=== PATIENT | male | born 1940 | race American Indian/Alaskan Native ===

== ENCOUNTER 2016-02-26 11:37 | Emergency (ER) | payer MEDICARE ==
[2016-02-26 13:53] LABS: Basophils % (Auto) 1.1 % (0.0-1.8); Hematocrit 43.6 % (35.5-45.6); Hemoglobin 14.7 gm/dl (11.8-15.2); Mean Corpuscular HGB Conc 34 % (32-34); Mean Corpuscular Hemoglobin 29 pg (28-32); Mean Corpuscular Volume 87 fl (84-94); Platelet Count 286 K/mm3 (140-440); Red Blood Count 5.03 M/mm3 (3.65-5.03); Red Cell Distribution Width 13.9 % (13.2-15.2); White Blood Count 4.9 K/mm3 (4.5-11.0)
--- NOTE | 2016-02-26 13:54 | Admit Criteria Form ---
Admission Criteria Documentation: CARDIOLOGY GRG Clinical Indications for Admission to Inpatient Care ( Place 'X' for any and all applicable criteria): Hospital admission is needed for appropriate care of the patient because of ANY ONE of the following (1): [ ] I. Hemodynamic instability as indicated by ALL of the following (1)(2)(3) (4)(5) [ ]a) Vital signs or other findings not as expected for chronic patient condition or baseline [ ]b) Instability indicated by ANY ONE of the following: [ ]i) Hypotension [ ]ii) Symptomatic Tachycardia unresponsive to treatment ( e.g., analgesia, fluids, sedation as indicated) [ ]iii) Inadequate perfusion indicated by ANY ONE of the following: [ ] 1) Lactic acidosis (> 2 mmol/L) [ ] 2) New abnormal capillary refill (> 3 seconds) [ ] 3) Reduced urine output [ ] 4) New altered mental status [ ]iv) Orthostatic vital sign changes unresponsive to treatment (e.g., fluids) [ ]v) IV inotropic or vasopressor medication required to maintain adequate blood pressure or perfusion [ ] II. Severe heart failure as indicated by ANY ONE of the following(17)(18) [ ]a) Respiratory distress [ ]b) Hypotension [ ]c) Anasarca (refractory to outpatient therapy) [ ]d) Cardiac arrhythmias of immediate concern [ ]e) Myocardial ischemia [ ] III. Cardiac arrhythmias or findings of immediate concern indicated by ANY ONE of the following (19)(20): [ ] a) Heart rhythms that are inherently dangerous or unstable indicated by ANY ONE of the following (21)(22)(23): [ ] i) Resuscitated ventricular fibrillation or cardiac arrest [ ] ii) Ventricular escape rhythm [ ] iii) Sustained ventricular tachycardia (30 seconds or more of ventricular rhythm at greater than 100 beats per minute) [ ] iv) Nonsustained ventricular tachycardia and ANY ONE of the following: [ ] 1) Suspected cardiac ischemia as cause or consequence of ventricular tachycardia [ ] 2) In setting of acute myocarditis [ ] b) Unstable cardiac conduction defects indicated by ANY ONE of the following(23)(24)(25) [ ] i) Type II second-degree atrioventricular block [ ]ii) Third-degree atrioventricular block [ ]iii) New-onset left bundle branch block with suspected myocardial ischemia [ ]c) Any heart rhythm and ANY ONE of the following (21)(22)(26)(27) (28) [ ] i) Continuous long-term ECG monitoring needed (e.g., initiation of drug requiring monitoring for more than 24 hours) [ ] ii) Patient has automatic implanted cardioverter defibrillator that is repeatedly firing, malfunctioning, or in need of immediate adjustment of settings beyond the scope of ambulatory or observation care [ ]d) Heart rhythms of concern due to ANY ONE of the following: [ ] i) Hypotension [ ] ii) Respiratory distress [ ] iii) Association with other significant symptoms (e.g., bradycardia with syncope or ongoing dizziness, supraventricular tachycardia with chest pain (14)(15)(17) [ ] IV. Monitoring for cardiac contusion beyond the scope of observation care needed [A](30)(31)(32) [ ] V. Surgical or device complication (e.g., valve replacement complication , pacemaker dysfunction) (35)(41)(44)(45)(46) [ ] . Inpatient palliative care needed. [B](49) Also use Inpatient Palliative Care Criteria [ ] VII. Nonbacterial thrombotic ([place]) endocarditis (36)(43)(47)(48) [ ] VIII. Cardiology condition, symptom, or finding for which emergency and observation care has failed or are not considered appropriate. [ ] IX. Acute valvular disease requiring inpatient as indicated by ANY ONE of the following (41) [ ]a) Acute valvular regurgitation (42) [ ]b) Noninfectious valvulitis (43) [ ]c) Obstructive valve thrombosis [ ]d) Paravalvular leak [ ]e) Other significant valvular disorder remaining after emergency or observation level of care (as appropriate) [ ]X. Pericardial disease requiring inpatient treatment as indicated by ANY ONE of the following (33)(34)(35)(36)(37) [ ]a) Suspected tamponade (38)(39)(40) [ ]b) Hemopericardium [ ]c) Other significant pericardial disorder remaining after emergency or observation level of care (as appropriate) [ ] XI. Cardiac ischemia beyond scope of emergency and observation care. [ ] XII. Hypertension requiring inpatient treatment as indicated by ANY ONE of the following (6)(7)(8) [ ]a) SBP greater than 220 mm Hg or DBP greater than 120 mmHg despite treatment [ ]b) SBP greater than 140 mm Hg or DBP greater than 100 mm Hg with evidence of acute end organ damage as indicated by ANY ONE of the following [ ] i) Altered mental status [ ] ii) Acute renal failure as indicated by new onset of ANY ONE of the following (9)(10)(11)(12)(13) [ ]1) 3-fold rise in serum creatinine from baseline [ ]2) Serum creatinine greater than 4 mg/dL ( 354 micromoles/L) with acute rise greater than 0.5 mg/dL (44.2 micromoles/L) [ ]3) Reduction of more than 75% in estimated glomerular filtration rate from baseline [ ]4) Estimated glomerular filtration rate less than 35 mL/min/1.73m2 (0.59 mL/sec/1.73m2) in child up to 18 years of age [ ]5) Cessation of urine output indicated by ALL of the following [ ]A. Adequate volume status [ ]B. Inadequate urine output as indicated by ANY ONE of the following [ ]a. Urine output less than 0.3 mL/kg/hr for 24 hours [ ]b. Anuria (urine output less than 0.1 mL/kg/hr) for 12 hours [ ] iii) Aortic dissection [ ] iv) Myocardial Ischemia [ ] v) Left ventricular heart failure [ ]vi) Retinal Hemorrhage [ ]vii) Other significant finding [ ]c) Hypertension in child requiring inpatient treatment as indicated by ALL of the following(14)(15)(16) [ ] i) Outpatient treatment not effective, not available, or not appropriate [ ]ii) SBP or DBP greater than 95th percentile for age [ ]iii) Evidence of acute end organ damage as indicated by ANY ONE of the following [ ]1) Altered mental status [ ]2) Acute renal failure as indicated by new onset of ANY ONE of the following(9)(10)(11)(12)(13) [ ]A. 3-fold rise in serum creatinine from baseline [ ]B. Serum creatinine greater than 4 mg/dL (354 micromoles/L) with acute rise greater than 0.5 mg/dL (44.2 micromoles/L) [ ]C. Reduction of more than 75% in estimated glomerular filtration rate from baseline [ ]D. Estimated glomerular filtration rate less than 35 mL/min/1.73m2 (0.59 mL/sec/1.73m2) in child up to 18 years of age [ ]E. Cessation of urine output indicated by ALL of the following [ ]a. Adequate volume status [ ]b. Inadequate urine output as indicated by ANY ONE of the following [ ]i) Urine output less than 0.3 mL/kg/hr for 24 hours [ ]ii) Anuria ( urine output less than 0.1 mL/kg/hr) for 12 hours [ ]3) Severe headache [ ]4) Visual disturbance [ ]5) Retinal hemorrhage [ ]6) Other significant finding [ ]XIII. Complications of transplanted heart indicated by ANY ONE of the following(61): [ ]a) Acute graft rejection requiring inpatient management (eg, intravenous immunosuppression)(62)(63) [ ]b) Acute graft heart failure indicated by ANY ONE of the following(64): [ ]i) Hemodynamic instability [ ]ii) Cardiac arrhythmias of immediate concern [ ]iii) Pulmonary edema that is very severe (eg, mechanical ventilation needed, imminent or likely, need for 100% oxygen to keep oxygen saturation above 90%) [ ]iv) Pulmonary edema that is persistent as indicated by ALL of the following: [ ]1) New need for oxygen therapy to keep oxygen saturation above 90% (or increased FiO2 need from baseline) [ ]2) Has not improved sufficiently with emergency department or observation care IV diuretics or other heart failure treatments[E] [ ]v) Altered mental status that is severe or persistent [ ]vi) Increased creatinine (new on laboratory test) with reduction of more than 50% in estimated glomerular filtration rate from baseline [ ]vii) Progressively (ongoing) rising creatinine (known from past laboratory test) with reduction of more than 25% in estimated glomerular filtration rate from baseline [ ]viii) Acute renal failure [ ]ix) Acute peripheral ischemia (eg, examination shows pulseless, cool, mottled, or cyanotic extremity) [ ]x) Pulmonary artery catheter monitoring needed [ ]xi) Other sign or symptom of heart failure requiring inpatient treatment (ie, too severe or not responsive to outpatient and observation care treatment) [ ]c) Infection requiring inpatient management (eg, Hemodynamic instability, need for intravenous antimicrobial treatment)(66)(67)(68)(69)(70) [ ]d) Cardiac allograft vasculopathy requiring inpatient management ( eg evidence of cardiac ischemia)(71) [ ]e) Other complication of transplanted heart (eg, stroke, severe pulmonary hypertension, severe valvular dysfunction) requiring inpatient management(72) The original [facility] [employer] content created by [facility] [employer] has been revised. The portions of the content which have been revised are identified through the use of italic text or in bold, and [facility] has neither reviewed nor approved the modified material. All other unmodified content is copyright [facility] [employer]. Please see references footnoted in the original [facility] [employer] edition 2016 Admission Criteria Met: Pending
[2016-02-26 14:05] LABS: Creatine Kinase MB 3.2 ng/mL (0.0-4.0); INR 1.1 (0.87-1.13)
[2016-02-26 14:06] LABS: Partial Thromboplastin Time 35.6 Sec. (24.2-36.6)
[2016-02-26 14:08] LABS: Alanine Aminotransferase 15 units/L (7-56); Albumin 3.9 g/dL (3.9-5); Alkaline Phosphatase 75 units/L (35-129); Anion Gap 21 mmol/L; Bilirubin,Direct 0.2 mg/dL (0-0.2); Bilirubin,Indirect 0.8 mg/dL; Blood Urea Nitrogen 19 mg/dL (9-20); Calcium 9.1 mg/dL (8.4-10.2); Carbon Dioxide 21 mmol/L (22-30); Chloride 105.2 mmol/L (98-107); Creatine Kinase 238 units/L (55-170); Glucose 77 mg/dL (75-100); Potassium 3.7 mmol/L (3.6-5.0); Sodium 143 mmol/L (137-145)
--- NOTE | 2016-02-26 14:25 | XRay Report ---
AP CHEST: HISTORY: chest pain AP view of the chest demonstrates a normal mediastinal and cardiac contour with clear lungs and normal bony and soft tissue structures. IMPRESSION: Unremarkable AP chest.
--- NOTE | 2016-02-26 14:58 | Emergency Department Report ---
ED Chest Pain HPI - General Chief Complaint: Dyspnea/Respdistress Stated Complaint: DIFFICULTY BREATHING Time Seen by Provider: 02/26/16 12:51 Source: patient, EMS Mode of arrival: Stretcher Limitations: No Limitations - History of Present Illness Severity scale (0 -10): 0 - Related Data Allergies Allergy/AdvReac Type Severity Reaction Status Date / Time No Known Allergies Allergy Unverified 02/26/16 13:03 ED Review of Systems ROS: Stated complaint: DIFFICULTY BREATHING Other details as noted in HPI ED Past Medical Hx - Past Medical History Previous Medical History?: Yes Hx Hypertension: Yes Additional medical history: Parkinson's - Surgical History Past Surgical History?: Yes Additional Surgical History: Abdominal - Social History Smoking Status: Former Smoker Substance Use Type: None ED Physical Exam - General Limitations: No Limitations ED Course Vital Signs 02/26/16 02/26/16 02/26/16 12:41 12:43 12:51 Temperature 97.6 F 97.6 F Pulse Rate 59 L 60 59 L Respiratory 14 17 14 Rate Blood Pressure 134/76 Blood Pressure 134/76 [Right] O2 Sat by Pulse 100 99 100 Oximetry 02/26/16 02/26/16 02/26/16 13:00 13:01 13:05 Temperature Pulse Rate 59 L 60 61 Respiratory 16 19 17 Rate Blood Pressure 139/81 139/81 139/81 Blood Pressure [Right] O2 Sat by Pulse 97 98 98 Oximetry 02/26/16 02/26/16 13:06 13:22 Temperature 98.7 F Pulse Rate 57 L Respiratory 14 14 Rate Blood Pressure Blood Pressure 142/72 [Right] O2 Sat by Pulse 98 98 Oximetry ED Medical Decision Making - Lab Data Result diagrams: 02/26/16 13:23 02/26/16 13:23 Laboratory Results - last 24 hr 02/26/16 02/26/16 02/26/16 13:22 13:23 13:23 WBC 4.9 RBC 5.03 Hgb 14.7 Hct 43.6 MCV 87 MCH 29 MCHC 34 RDW 13.9 Plt Count 286 Lymph % (Auto) 32.9 [place] % (Auto) 8.9 H Eos % (Auto) 1.0 Baso % (Auto) 1.1 Lymph # 1.6 [place] # 0.4 Eos # 0.0 Baso # 0.1 Seg Neutrophils % 56.1 Seg Neutrophils # 2.8 PT 14.1 INR 1.10 APTT 35.6 Sodium Potassium Chloride Carbon Dioxide Anion Gap BUN Creatinine Estimated GFR BUN/Creatinine Ratio Glucose Calcium Total Bilirubin Direct Bilirubin Indirect Bilirubin AST ALT Alkaline Phosphatase Total Creatine Kinase CK-MB (CK-2) CK-MB (CK-2) Rel Index Troponin T NT-Pro-B Natriuret Pep Total Protein Albumin Albumin/Globulin Ratio Blood Type O POSITIVE Antibody Screen Negative 02/26/16 02/26/16 13:23 13:23 WBC RBC Hgb Hct MCV MCH MCHC RDW Plt Count Lymph % (Auto) [place] % (Auto) Eos % (Auto) Baso % (Auto) Lymph # [place] # Eos # Baso # Seg Neutrophils % Seg Neutrophils # PT INR APTT Sodium 143 Potassium 3.7 Chloride 105.2 Carbon Dioxide 21 L Anion Gap 21 BUN 19 Creatinine 1.0 Estimated GFR > 60 BUN/Creatinine Ratio 19.00 Glucose 77 Calcium 9.1 Total Bilirubin 1.0 Direct Bilirubin 0.2 Indirect Bilirubin 0.8 AST 16 ALT 15 Alkaline Phosphatase 75 Total Creatine Kinase 238 H CK-MB (CK-2) 3.2 CK-MB (CK-2) Rel Index 1.3 Troponin T < 0.010 NT-Pro-B Natriuret Pep 120.1 Total Protein 8.0 Albumin 3.9 Albumin/Globulin Ratio 1.0 Blood Type Antibody Screen Critical care attestation.: If time is entered above; I have spent that time in minutes in the direct care of this critically ill patient, excluding procedure time. ED Disposition Condition: Stable
[2016-02-26] MEDS ORDERED: NACL 0.9% 1000 ML 1,000 ML IV ONE (15:11)
[2016-02-26] MEDS ORDERED: ROCEPHIN/NS 1 GM/50 ML 50 ML IV ONE (15:14)
--- NOTE | 2016-02-26 15:41 | Emergency Department Report ---
ED General Adult HPI - General Chief complaint: Dyspnea/Respdistress Stated complaint: DIFFICULTY BREATHING Time Seen by Provider: 02/26/16 12:51 Source: patient, EMS Mode of arrival: Stretcher Limitations: No Limitations - History of Present Illness Initial comments: The patient presents to the emergency department with a somewhat odd history of right flank pain. He speaks very softly and almost inaudibly. He states that he has had the pain since he fell and that he fell this morning. Alternatively he states he's had the pain for 2 or 3 days. It is hard to reconcile these histories. I asked him if he fell to 3 days ago he said yes as well. He does not complain of radiating pain. He is a very limited historian. Pain seems to be located in the right flank and not in the costal area. Indeed he had no tenderness to palpation. He had no syncope. He does not complain of shortness of breath fever chills or cough. There's been no nausea vomiting. Family presents with this patient. They confirm that his speech is at his baseline. He has advanced Parkinson's disease with resting tremor. None of this has changed. -: days(s) Location: right (flank) Radiation: non-radiation Severity scale (0 -10): 0 Quality: aching Consistency: intermittent Improves with: none Worsens with: none Associated Symptoms: denies other symptoms - Related Data Home Medications Medication Instructions Recorded Confirmed Last Taken Carbidopa/Levodopa [Rytary ER 1 each PO DAILY 02/26/16 02/26/16 Unknown 61.25 mg-245 mg Cap] Ofloxacin 0.3% [Floxin] 5 ml OT DAILY 02/26/16 02/26/16 Unknown Tylenol/Codeine 120-12 mg/5 ml 1 PO DAILY 02/26/16 Unknown amLODIPine [Norvasc] 5 mg PO DAILY 02/26/16 02/26/16 Unknown Allergies Allergy/AdvReac Type Severity Reaction Status Date / Time No Known Allergies Allergy Unverified 02/26/16 13:03 ED Review of Systems ROS: Stated complaint: DIFFICULTY BREATHING Other details as noted in HPI Comment: All other systems reviewed and negative (limited historian, as far as I can elicit it is negative.) ED Past Medical Hx - Past Medical History Previous Medical History?: Yes Hx Hypertension: Yes Additional medical history: Parkinson's - Surgical History Past Surgical History?: Yes Additional Surgical History: Abdominal - Social History Smoking Status: Former Smoker Substance Use Type: None - Medications Home Medications: Home Medications Medication Instructions Recorded Confirmed Last Taken Type Carbidopa/Levodopa [Rytary ER 1 each PO DAILY 02/26/16 02/26/16 Unknown History 61.25 mg-245 mg Cap] Ofloxacin 0.3% [Floxin] 5 ml OT DAILY 02/26/16 02/26/16 Unknown History Tylenol/Codeine 120-12 mg/5 ml 1 PO DAILY 02/26/16 Unknown History amLODIPine [Norvasc] 5 mg PO DAILY 02/26/16 02/26/16 Unknown History ED Physical Exam - General Limitations: No Limitations General appearance: alert, in no apparent distress - Head Head exam: Present: atraumatic, normocephalic - Eye Eye exam: Present: normal appearance, PERRL, EOMI. Absent: scleral icterus - ENT ENT exam: Present: normal exam, mucous membranes moist - Neck Neck exam: Present: normal inspection - Respiratory Respiratory exam: Present: normal lung sounds bilaterally. Absent: respiratory distress - Cardiovascular Cardiovascular Exam: Present: regular rate, normal rhythm. Absent: systolic murmur, diastolic murmur, rubs, gallop - GI/Abdominal GI/Abdominal exam: Present: soft, normal bowel sounds. Absent: distended, tenderness, guarding, rebound, rigid - Rectal Rectal exam: Present: deferred - Extremities Exam Extremities exam: Present: normal inspection - Back Exam Back exam: Present: normal inspection - Neurological Exam Neurological exam: Present: alert, oriented X3, other (resting tremor, no acute focal deficit.) - Psychiatric Psychiatric exam: Present: normal affect, normal mood - Skin Skin exam: Present: warm, dry, intact, normal color. Absent: rash ED Course Vital Signs 02/26/16 02/26/16 02/26/16 12:41 12:43 12:51 Temperature 97.6 F 97.6 F Pulse Rate 59 L 60 59 L Respiratory 14 17 14 Rate Blood Pressure 134/76 Blood Pressure 134/76 [Right] O2 Sat by Pulse 100 99 100 Oximetry 02/26/16 02/26/16 02/26/16 13:00 13:01 13:05 Temperature Pulse Rate 59 L 60 61 Respiratory 16 19 17 Rate Blood Pressure 139/81 139/81 139/81 Blood Pressure [Right] O2 Sat by Pulse 97 98 98 Oximetry 02/26/16 02/26/16 13:06 13:22 Temperature 98.7 F Pulse Rate 57 L Respiratory 14 14 Rate Blood Pressure Blood Pressure 142/72 [Right] O2 Sat by Pulse 98 98 Oximetry ED Medical Decision Making - Lab Data Result diagrams: 02/26/16 13:23 02/26/16 13:23 Laboratory Results - last 24 hr 02/26/16 02/26/16 02/26/16 13:22 13:23 13:23 WBC 4.9 RBC 5.03 Hgb 14.7 Hct 43.6 MCV 87 MCH 29 MCHC 34 RDW 13.9 Plt Count 286 Lymph % (Auto) 32.9 [place] % (Auto) 8.9 H Eos % (Auto) 1.0 Baso % (Auto) 1.1 Lymph # 1.6 [place] # 0.4 Eos # 0.0 Baso # 0.1 Seg Neutrophils % 56.1 Seg Neutrophils # 2.8 PT 14.1 INR 1.10 APTT 35.6 Sodium Potassium Chloride Carbon Dioxide Anion Gap BUN Creatinine Estimated GFR BUN/Creatinine Ratio Glucose Calcium Total Bilirubin Direct Bilirubin Indirect Bilirubin AST ALT Alkaline Phosphatase Total Creatine Kinase CK-MB (CK-2) CK-MB (CK-2) Rel Index Troponin T NT-Pro-B Natriuret Pep Total Protein Albumin Albumin/Globulin Ratio Blood Type O POSITIVE Antibody Screen Negative 02/26/16 02/26/16 13:23 13:23 WBC RBC Hgb Hct MCV MCH MCHC RDW Plt Count Lymph % (Auto) [place] % (Auto) Eos % (Auto) Baso % (Auto) Lymph # [place] # Eos # Baso # Seg Neutrophils % Seg Neutrophils # PT INR APTT Sodium 143 Potassium 3.7 Chloride 105.2 Carbon Dioxide 21 L Anion Gap 21 BUN 19 Creatinine 1.0 Estimated GFR > 60 BUN/Creatinine Ratio 19.00 Glucose 77 Calcium 9.1 Total Bilirubin 1.0 Direct Bilirubin 0.2 Indirect Bilirubin 0.8 AST 16 ALT 15 Alkaline Phosphatase 75 Total Creatine Kinase 238 H CK-MB (CK-2) 3.2 CK-MB (CK-2) Rel Index 1.3 Troponin T < 0.010 NT-Pro-B Natriuret Pep 120.1 Total Protein 8.0 Albumin 3.9 Albumin/Globulin Ratio 1.0 Blood Type Antibody Screen Laboratory Results - last 24 hr 02/26/16 02/26/16 02/26/16 13:22 13:23 13:23 WBC 4.9 RBC 5.03 Hgb 14.7 Hct 43.6 MCV 87 MCH 29 MCHC 34 RDW 13.9 Plt Count 286 Lymph % (Auto) 32.9 [place] % (Auto) 8.9 H Eos % (Auto) 1.0 Baso % (Auto) 1.1 Lymph # 1.6 [place] # 0.4 Eos # 0.0 Baso # 0.1 Seg Neutrophils % 56.1 Seg Neutrophils # 2.8 PT 14.1 INR 1.10 APTT 35.6 Sodium Potassium Chloride Carbon Dioxide Anion Gap BUN Creatinine Estimated GFR BUN/Creatinine Ratio Glucose Calcium Total Bilirubin Direct Bilirubin Indirect Bilirubin AST ALT Alkaline Phosphatase Total Creatine Kinase CK-MB (CK-2) CK-MB (CK-2) Rel Index Troponin T NT-Pro-B Natriuret Pep Total Protein Albumin Albumin/Globulin Ratio Urine Color Urine Turbidity Urine pH Ur Specific [place] Urine Protein Urine Glucose (UA) Urine Ketones Urine Blood Urine Nitrite Urine Bilirubin Urine Urobilinogen Ur Leukocyte Esterase Urine WBC (Auto) Urine RBC (Auto) Urine Mucus Blood Type O POSITIVE Antibody Screen Negative 02/26/16 02/26/16 02/26/16 13:23 13:23 15:30 WBC RBC Hgb Hct MCV MCH MCHC RDW Plt Count Lymph % (Auto) [place] % (Auto) Eos % (Auto) Baso % (Auto) Lymph # [place] # Eos # Baso # Seg Neutrophils % Seg Neutrophils # PT INR APTT Sodium 143 Potassium 3.7 Chloride 105.2 Carbon Dioxide 21 L Anion Gap 21 BUN 19 Creatinine 1.0 Estimated GFR > 60 BUN/Creatinine Ratio 19.00 Glucose 77 Calcium 9.1 Total Bilirubin 1.0 Direct Bilirubin 0.2 Indirect Bilirubin 0.8 AST 16 ALT 15 Alkaline Phosphatase 75 Total Creatine Kinase 238 H CK-MB (CK-2) 3.2 CK-MB (CK-2) Rel Index 1.3 Troponin T < 0.010 NT-Pro-B Natriuret Pep 120.1 Total Protein 8.0 Albumin 3.9 Albumin/Globulin Ratio 1.0 Urine Color Yellow Urine Turbidity Clear Urine pH 5.0 Ur Specific [place] 1.025 Urine Protein 30 mg/dl Urine Glucose (UA) Neg Urine Ketones 20 Urine Blood Mod Urine Nitrite Neg Urine Bilirubin Neg Urine Urobilinogen < 2.0 Ur Leukocyte Esterase Neg Urine WBC (Auto) 2.0 Urine RBC (Auto) 123.0 Urine Mucus Few Blood Type Antibody Screen - EKG Data -: EKG Interpreted by Me EKG shows normal: sinus rhythm, axis, intervals, QRS complexes, ST-T waves Rate: normal - EKG Data Interpretation: nonspecific ST-T wave sussy - Radiology Data Radiology results: report reviewed interpreted by me: CT NAF. See report. Critical care attestation.: If time is entered above; I have spent that time in minutes in the direct care of this critically ill patient, excluding procedure time. ED Disposition Clinical Impression: Right flank pain, Parkinson disease Disposition: DISCHARGED TO HOME OR SELFCARE Is pt being admited?: No Does the pt Need Aspirin: No Condition: Stable Instructions: Flank Pain (ED) Additional Instructions: There were some abnormalities on the CT scan that require follow up with your PCP. Return symptoms worsen. Patient stated pain gone. Tylenol and needed. Referrals: PRIMARY CARE, [Primary Care Provider] - 3-5 Days Forms: Accompanied Note Time of Disposition: 17:11
[2016-02-26 15:44] LABS: Bilirubin,Urine NEG (Negative); Blood,Urine MOD (Negative); Ketones,Urine 20 mg/dL (Negative); Leukocyte Esterase,Urine NEG (Negative); Mucus,Urine FEW /HPF; Nitrite,Urine NEG (Negative); Urobilinogen,Urine < 2.0 mg/dL (<2.0)
--- NOTE | 2016-02-26 16:50 | Cat Scan Report ---
CT ABDOMEN AND PELVIS WITHOUT CONTRAST INDICATION: Right flank pain. COMPARISON: None similar. FINDINGS: Noncontrast abdomen and pelvis CT performed. LUNG BASES: Right hemidiaphragm slightly elevated. Nonspecific distal esophageal wall thickening, not excluded for gastroesophageal reflux and/or hiatal hernia, amongst others. ABDOMEN: Please note that sensitivity to detect small visceral lesions is limited due to the absence of intravenous or oral contrast. Exam also in part limited due to artifact from patient's arms by the sides and multilevel lumbar spinal fusion hardware. Numerous hepatic hypodensities, some sub-centimeter and inadequately characterized while the largest 2.6 x 1.6 cm in the right hepatic lobe on axial image 73, series 2 represents a simple cyst. Small splenic calcified granulomas. No radiopaque gallstones or renal calculi. Kidneys noted malrotated bilaterally. Approximately 3 cm left renal cortical simple cyst inferiorly. Grossly unremarkable unenhanced pancreas, adrenals, nonaneurysmal abdominal aorta with few atherosclerotic calcifications and IVC. No ascites or definite size significant adenopathy. Nonopacified GI tract evaluation limited, though grossly nonobstructive. PELVIS: Enlarged prostate creates an impression at the bladder base and may be correlated for clinically and with PSA. Otherwise grossly unremarkable nonopacified, suboptimally distended urinary bladder. Mild sigmoid stool and some in the rectum. Nonspecific rectal wall prominence and subtle surrounding fat stranding however seen on axial images [id number], series 2. No significant free fluid or definite adenopathy however. L2-L4 bilateral fusion pedicle rods and screws noted, including invisible connecting rods between L2 and L3. Posterior decompression at L3 and L4 also noted. Bony demineralization and multilevel imaged spinal degenerative changes. CONCLUSION: 1. No definite CT explanation for patient's right flank pain on this unenhanced exam. Specifically, no radiopaque renal calculi or hydronephrosis suspected. Renal malrotation and left renal cyst incidentally noted. 2. Nonspecific rectal CT appearance with subtle wall thickening/occult neoplasm not entirely excluded in a patient of this age. GI/sigmoidoscopy may help further characterize, as appropriate. 3. Few other incidental findings, including hepatic hypodensities/cysts, an enlarged prostate and multilevel spinal degenerative and lumbar postsurgical changes, as described above. Thank you for the opportunity to participate in this patient's care.
[2016-02-26 19:06] VITALS: BP 138/74
== END 2016-02-26 18:25 | disposition home or self-care (01) ==
LOC: ED 11:37
DX: R10.9 Unspecified abdominal pain (principal); G20 Parkinson's disease; I10 Essential (primary) hypertension; Z87.891 Personal history of nicotine dependence
CPT/HCPCS: 36415; 71010; 74176; 80048; 80074; 81001; 82140; 82550; 82553; 83880; 84484; 85025; 85610; 85730; 86850; 86900; 86901; 87040; 87086; 93005; 93010; 96365; 99285; J0696; J7030; 96361

== ENCOUNTER 2016-07-14 19:20 | Inpatient (IN) | payer MEDICARE ==
--- NOTE | 2016-07-14 20:38 | Emergency Department Report ---
HPI - General Chief Complaint: Abdominal Pain Time Seen by Provider: 07/14/16 20:06 - HPI HPI: This is a 76-year-old -[place]ian male who presents to the emergency department from home, with his children bedside, with complaint of left upper quadrant abdominal pain and/or left lower rib cage pain. They also say that the patient has not had his hypertension or Parkinson's meds in 3-4 days. 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 Patient does have a past medical history of hypertension and Parkinson's for which she takes carbidopa/levodopa, and Norvasc. Family is concerned as they say he appears weaker than usual. He normally ambulates with some assistance but does not appear as if he is able to move around at this time. He also presents with bilateral red eyes and some discharge coming from the eyes. He has a recent history of cataract removal. ED Past Medical Hx - Past Medical History Previous Medical History?: Yes Hx Hypertension: Yes Additional medical history: Parkinson's - Surgical History Additional Surgical History: Abdominal - Social History Smoking Status: Never Smoker Substance Use Type: None - Medications Home Medications: Home Medications Medication Instructions Recorded Confirmed Last Taken Type Carbidopa/Levodopa [Rytary ER 1 each PO DAILY 02/26/16 07/14/16 Unknown History 61.25 mg-245 mg Cap] Ofloxacin 0.3% [Floxin] 5 ml OT DAILY 02/26/16 07/14/16 Unknown History amLODIPine [Norvasc] 5 mg PO DAILY 02/26/16 07/14/16 Unknown History ED Review of Systems ROS: Stated complaint: ABD PAIN Other details as noted in HPI Constitutional: weakness. denies: fever Eyes: eye discharge. denies: eye pain ENT: denies: ear pain, throat pain Respiratory: denies: cough, shortness of breath, wheezing Cardiovascular: denies: palpitations, edema Gastrointestinal: abdominal pain Genitourinary: denies: urgency, dysuria Musculoskeletal: denies: back pain, joint swelling, arthralgia Skin: denies: rash, lesions Neurological: denies: headache, weakness, paresthesias Physical Exam - Physical Exam Vital Signs: Vital Signs 07/14/16 07/14/16 19:41 19:49 Temperature 99.1 F 99.1 F Pulse Rate 75 75 Respiratory 20 20 Rate Blood Pressure 133/86 Blood Pressure 133/86 [Left] O2 Sat by Pulse 99 99 Oximetry Physical Exam: GENERAL: The patient is well-developed well-nourished. HEENT: Normocephalic. Atraumatic. Extraocular motions are intact. Patient has moist mucous membranes. Pupils equal reactive to light bilaterally. NECK: Supple. Trachea is midline. CHEST/LUNGS: Clear to auscultation. There is no respiratory distress noted. HEART/CARDIOVASCULAR: Regular. There is no tachycardia. There is no gallop rub or murmur. ABDOMEN: Abdomen is soft. There is some tenderness palpation to the left upper quadrant of the abdomen. No guarding rebound tenderness. Patient has normal bowel sounds. There is no abdominal distention. SKIN: Skin is warm and dry. NEURO: The patient is awake, alert. The patient is cooperative. No slurred speech. MUSCULOSKELETAL: There is no tenderness or deformity. There is no evidence of acute injury. ED Course Vital Signs 07/14/16 07/14/16 19:41 19:49 Temperature 99.1 F 99.1 F Pulse Rate 75 75 Respiratory 20 20 Rate Blood Pressure 133/86 Blood Pressure 133/86 [Left] O2 Sat by Pulse 99 99 Oximetry ED Medical Decision Making - Lab Data Result diagrams: 07/14/16 20:25 07/14/16 20:25 - EKG Data -: EKG Interpreted by Nc EKG shows normal: sinus rhythm, axis (left axis deviation), intervals, QRS complexes, ST-T waves Rate: normal - EKG Data When compared to previous EKG there are: no significant change, previous EKG unavailable Interpretation: normal EKG, unchanged when compared t (02/26/16) - Radiology Data Radiology results: report reviewed CT of the head without contrast shows no acute intracranial findings. Chronic ischemic and atrophic changes. CT of the abdomen and pelvis with IV contrast shows no evidence of intestinal or urinary tract obstruction. Extrarenal pelvis identified in the collecting system on the left. No obstructing stone or lesion is identified. Multiple hepatic hypodensities most consistent with cysts that have not changed. X-ray of the abdomen and chest shows nonspecific bowel gas pattern which may represent adynamic ileus. - Medical Decision Making 76-year-old male presents to the emergency department having not taken his hypertension and Parkinson's meds for the past few days. Family feels that he has been more fatigued than usual and slightly altered. CT of the head does not show any bleed, shift, mass or any acute process. He also had some abdominal pain that was reproducible to the left upper quadrant. A chest and abdominal x-ray were done that also did not show any acute process. Possibly adynamic ileus. Patient's labs included a positive troponin. I spoke with the day care aide on-call who did not feel that the patient required heparin. EKG did not show any signs of ST elevation ME, ischemia or dysrhythmia. CT of the abdomen and pelvis with IV contrast also did not show any acute process. The patient will be admitted to the hospital for further evaluation and treatment, serial troponins, continued telemetry and has been accepted for admission by the hospitalist, Dr. Michael. - Differential Diagnosis Parkinson's, CVA, gastritis, ME Critical Care Time: No Critical care attestation.: If time is entered above; I have spent that time in minutes in the direct care of this critically ill patient, excluding procedure time. ED Disposition Clinical Impression: Parkinson disease, Elevated troponin Abdominal pain Qualifiers: Abdominal location: left upper quadrant Qualified Code(s): R10.12 - Left upper quadrant pain Rhabdomyolysis Qualifiers: Rhabdomyolysis type: non-traumatic Qualified Code(s): M62.82 - Rhabdomyolysis Disposition: DC-09 OP ADMIT IP TO THIS HOSP Is pt being admited?: Yes Condition: Fair
[2016-07-14 20:44] LABS: Urine Drugs of Abuse Note Disclamer
[2016-07-14 20:46] LABS: Basophils % (Auto) 0.6 % (0.0-1.8); Eosinophils % (Auto) 0.4 % (0.0-4.3); Hematocrit 42.8 % (35.5-45.6); Hemoglobin 14.5 gm/dl (11.8-15.2); Mean Corpuscular HGB Conc 34 % (32-34); Mean Corpuscular Hemoglobin 29 pg (28-32); Mean Corpuscular Volume 87 fl (84-94); Platelet Count 170 K/mm3 (140-440); Red Blood Count 4.91 M/mm3 (3.65-5.03); Red Cell Distribution Width 14.5 % (13.2-15.2); White Blood Count 8.2 K/mm3 (4.5-11.0)
[2016-07-14 20:56] LABS: Anion Gap 18 mmol/L; BUN/Creatinine Ratio 33.33; Blood Urea Nitrogen 40 mg/dL (9-20); Calcium 8.4 mg/dL (8.4-10.2); Carbon Dioxide 22 mmol/L (22-30); Chloride 114.2 mmol/L (98-107); Glucose 113 mg/dL (75-100); Potassium 3.6 mmol/L (3.6-5.0); Sodium 151 mmol/L (137-145)
[2016-07-14 20:58] LABS: Albumin 3.5 g/dL (3.9-5); Albumin/Globulin Ratio 0.9 %; Alkaline Phosphatase 51 units/L (35-129); Bilirubin,Direct 0.2 mg/dL (0-0.2); Bilirubin,Indirect 0.8 mg/dL; Lipase 22 units/L (13-60); Total Protein 7.4 g/dL (6.3-8.2)
[2016-07-14 21:00] LABS: Alanine Aminotransferase < 5 units/L (7-56)
[2016-07-14 21:11] LABS: Bilirubin,Urine NEG (Negative); Blood,Urine LG (Negative); Ketones,Urine TR mg/dL (Negative); Leukocyte Esterase,Urine NEG (Negative); Mucus,Urine FEW /HPF; Nitrite,Urine NEG (Negative); Urobilinogen,Urine < 2.0 mg/dL (<2.0)
[2016-07-14 21:15] LABS: Cholesterol 202 mg/dL (50-199); HDL Cholesterol 53 mg/dL (40-59); LDL Cholesterol,Direct 127 mg/dL (50-130); Triglycerides 110 mg/dL (2-149)
[2016-07-14] MEDS ORDERED: MACROBID PO ONE (21:57)
--- NOTE | 2016-07-14 22:30 | Cat Scan Report ---
FINAL REPORT EXAM: CT HEAD/BRAIN WO CON HISTORY: Weakness TECHNIQUE: Noncontrast CT axial images of the brain. PRIORS: None. FINDINGS: No parenchymal mass, mass effect, hemorrhage, midline shift or hydrocephalus. No evidence of acute cortical infarct. No abnormal, extra-axial fluid or air collection. Mild, patchy low density in the periventricular and subcortical white matter is nonspecific, but may relate to chronic small vessel ischemic change. Bilateral basal ganglia calcifications. Age-related volume loss. Osseous calvarium grossly intact. IMPRESSION: 1. No acute intracranial findings. 2. Chronic ischemic and atrophic changes.
--- NOTE | 2016-07-14 23:01 | XRay Report ---
FINAL REPORT EXAM: XR ABD SERIES W CXR 1V HISTORY: LUQ abd pain and rib pain TECHNIQUE: Frontal chest x-ray. Supine and upright abdomen films. PRIORS: None. FINDINGS: Chest: No evidence of acute cardiopulmonary disease. Abdomen: Nonspecific bowel gas pattern without features suggestive of mechanical obstruction. No apparent pneumoperitoneum. No abnormal calcifications. Extensive postsurgical change and fixation hardware in the lumbar spine. IMPRESSION: 1. Nonspecific bowel gas pattern, which may represent adynamic ileus. Followup may be warranted.
[2016-07-15] MEDS ORDERED: NACL 0.9% 1000 ML 1,000 ML IV ONE (01:46)
--- NOTE | 2016-07-15 01:46 | History and Physical Report ---
History of Present Illness Date of examination: 07/15/16 History of present illness: 76 year old man with history of Hypertension, Parkinsons disease, dementa was brought to the emergrncy room for weakness. He states that he had fallen, unclear hes been on the floor. He complain of epigastric pain, he is unable to elaborate.He had not taken his meds in 3- 4 days, he had decrease oral intake, he does not have an apitite. review of system is difficult to obtain PAST SURGICAL HISTORY: Unknown SOCIAL HISTORY:No alcohol, tobacco, drugs FAMILY HISTORY:Hypertension Medications and Allergies Allergies Allergy/AdvReac Type Severity Reaction Status Date / Time No Known Allergies Allergy Unverified 02/26/16 13:03 Home Medications Medication Instructions Recorded Confirmed Last Taken Type Carbidopa/Levodopa [Rytary ER 1 each PO DAILY 02/26/16 07/14/16 Unknown History 61.25 mg-245 mg Cap] Ofloxacin 0.3% [Floxin] 5 ml OT DAILY 02/26/16 07/14/16 Unknown History amLODIPine [Norvasc] 5 mg PO DAILY 02/26/16 07/14/16 Unknown History Exam - Physical Exam Narrative exam: Gen. appearance: Patient lying in bed, no apparent distress HEENT: Normocephalic, atraumatic, pupils equally round and reactive to light, extraocular movement intact, and no sclericterus,. No JVD or thyromegaly or nodule,neck supple, no carotid bruit ,mucous membranes dry, no exudate or erythema Heart: S1, S2, regular rate and rhythm Lungs: Clear to auscultation bilaterally, breathing comfortable Abdomen: Positive bowel sounds, tender in epigastric, nondistended, no organomegaly Extremity: No edema, cyanosis, clubbing Skin: No rash, nodules, warm, dry Neuro: speech is fluent, motor and sensory intact - Constitutional Vitals: Temp Pulse Resp BP Pulse Ox 99.1 F 75 20 133/86 99 07/14/16 19:49 07/14/16 19:49 07/15/16 00:09 07/14/16 19:49 07/15/16 00:09 Results - Labs CBC & Chem 7: 07/14/16 20:25 07/14/16 20:25 Labs: Abnormal lab results 07/14/16 07/14/16 07/14/16 Range/Units 20:20 20:25 20:25 Taylor % (Auto) 8.2 H (0.0-7.3) % Seg Neutrophils % 73.8 H (40.0-70.0) % Sodium 151 H (137-145) mmol/L Chloride 114.2 H (98-107) mmol/L BUN 40 H (9-20) mg/dL Glucose 113 H (75-100) mg/dL AST 97 H (5-40) units/L ALT < 5 L (7-56) units/L Troponin T 0.062 H (0.00-0.029) ng/mL Albumin 3.5 L (3.9-5) g/dL Cholesterol 202 H (50-199) mg/dL Urine WBC (Auto) (0.0-6.0) /HPF 07/14/16 Range/Units 20:35 Taylor % (Auto) (0.0-7.3) % Seg Neutrophils % (40.0-70.0) % Sodium (137-145) mmol/L Chloride (98-107) mmol/L BUN (9-20) mg/dL Glucose (75-100) mg/dL AST (5-40) units/L ALT (7-56) units/L Troponin T (0.00-0.029) ng/mL Albumin (3.9-5) g/dL Cholesterol (50-199) mg/dL Urine WBC (Auto) 42.0 H (0.0-6.0) /HPF - Imaging and Cardiology EKG: image reviewed Chest x-ray: image reviewed Abdominal x-ray: image reviewed CT scan - abdomen: report reviewed CT scan - pelvis: report reviewed Assessment and Plan Abdominal pain Hypernatremia Dehydration Abnormal cardiac enzyme uti Parkinson's Disease Dementia Admit to medicine Obtain CAT scan of the abdomen and pelvis Start IV fluid, check cardiac enzymes, echo Consult cardiology Part IV Rocephin, DVT prophylaxis Discussed with family at bedside
[2016-07-15] MEDS ORDERED: DULCOLAX PR PRN (01:47)
[2016-07-15] MEDS ORDERED: TYLENOL PO PRN (01:47)
[2016-07-15] MEDS ORDERED: ZOFRAN IV PRN (01:47)
[2016-07-15] MEDS ORDERED: MILK OF MAGNESIA PO PRN (01:47)
[2016-07-15 02:42] LABS: Creatine Kinase MB 8.6 ng/mL (0.0-4.0)
--- NOTE | 2016-07-15 03:50 | Cat Scan Report ---
FINAL REPORT PROCEDURE: CT ABDOMEN PELVIS WO CON TECHNIQUE: Computerized axial tomography of the abdomen and pelvis was performed without intravenous contrast. This study is performed without intravascular contrast material and its sensitivity for abdominal and pelvic pathology, including neoplasms, inflammation, abscess, free fluid, thrombosis, arterial dissection and infarction, is reduced compared with a contrast enhanced study. HISTORY: abd pain COMPARISON: 02/26/2016 FINDINGS: Visualized lower thorax: No significant abnormality. Liver: There are multiple areas of hypoattenuation within the liver, the largest measuring 26 x 16 millimeters in the right lobe. Multiple cysts are suspected. These have not changed.. Spleen: There are some calcifications within the spleen most consistent with granulomas.. Gallbladder and biliary system: Normal. Pancreas: Normal. Adrenals: Normal. Kidneys: Kidneys have normal size. There is an extrarenal pelvis on the left. The left ureter has a normal course and caliber to the urinary bladder. No obstructing lesion or stone is seen. There is a 3 centimeter left lateral renal cortical cyst identified. The right collecting system has a normal appearance. No obstruction is seen.. GI tract: The stomach is normal. The small bowel has a normal caliber. No obstruction, ileus or enteritis. The cecum, appendix region and colon are normal. Moderate fecal debris and gas scattered throughout the colon. Constipation is possible.. Lymph nodes and mesentery: Normal. Vasculature: Moderate atherosclerosis of the aorta and branching vessels.. Bladder: Normal. Reproductive organs: There is enlarged prostate gland, this has not changed.. Peritoneum: No free fluid. Musculoskeletal structures: Moderate degenerative changes of the lumbar spine. The patient has had previous lower lumbar fusion with pedicle screws at the L2, L3, L4 and L5 vertebral levels. This does cause some artifact in the mid lower abdomen.. Other: None. IMPRESSION: There is no evidence of intestinal or urinary tract obstruction. Extrarenal pelvis identified in the collecting system on the left. No obstructing stone or lesion is identified on this study. Multiple hepatic hypodensities most consistent with cysts. These have not changed..
[2016-07-15] MEDS: D5W 1,000 ML IV SCH ×2 (04:11→18:17)
--- NOTE | 2016-07-15 08:41 | Admit Criteria Form ---
Admission Criteria Documentation: ABDOMINAL PAIN Clinical Indications for Admission to Inpatient Care (Place 'X' for any and all applicable criteria): Admission is indicated for ANY ONE of the following(1)(2)(3)(4)(5): [ X]I. Inpatient admission required rather than observation care (Also use Abdominal Pain: Observation Care, as appropriate) because of ANY ONE of the following: [ ]a) Severe pain requiring acute inpatient management [ ]b) Identification of etiology/finding that requires inpatient care (eg, aortic dissection, free air) [ ]c) Absent bowel sounds with complete ileus(6) [ ]d) Suspected toxic megacolon [ ]e) Severe electrolyte abnormalities requiring inpatient care [ ]f) High fever or infection requiring inpatient admission as indicated by ANY ONE of following(7)(8): [ ] i) Appropriate outpatient or observational care antimicrobial treatment unavailable, not effective, or not feasible [ ] ii) Documented bacteremia [ ] iii) Temperature > 104.9 degrees F (oral) [ ] iv) T >103.1 F (oral) or < 96.8 F(rectal) that does not respond to all emergency treatment measures [ ]g) Signs of intestinal obstruction [B] [ ]h) Hemodynamic instability [ ]i) IV fluid to replace significant ongoing losses (greater than 3 L/m2 per day) (12)(13) [ ]j) Percutaneous or open drainage (eg, abscess, biliary tract ) procedures [ ]k) Parenteral nutrition regimen that must be implemented on inpatient basis [X]l) Other condition,treatment or monitoring requiring inpatient admission. [ ]II. Peritoneal signs present [ ]III. Surgery needed that cannot be performed on an ambulatory basis. [ ]IV. Evaluation requires patient to not eat or drink for extended period ( eg, more than 24 hours). [ ]V. Contraindications and/or Inappropriate clinical situations for Observational Care in patients with abdominal pain, when ANY ONE of the following is required: [ ]a) Thorough evaluation is required to prevent catastrophic events due to delays in diagnosing (e.g.Mesenteric ischemia) 1,3 [ ]b) Patient with severe pathology or with chronic symptoms unlikely to improve in the ED stay (3) [X ]. General contraindications and/or Inappropriate clinical situations for Observational Care in patients with abdominal pain, when ANY ONE of the following is required: [X]a) Prediction of prolongation of LOS based on ANY ONE of the following may be considered as a contraindication for observational care 2, 3, 4, 5, 6, 7, 8, 9, 10, 11 [ X]i) Age > 65 yrs. [ ]ii) Patient arriving by ambulance [ ]iii) Patient with high acuity [ ]iv) Patient requiring vital sign monitoring [ ]v) Patient on IV medication [ ]b) Systolic blood pressures 180mmHg 3,12 [ ]c) Patient with altered mental status including delirium and other alteration of consciousness, (3) [ ]d) Patient whose discharge disposition will be to a longterm home or rehabilitation home should not be managed in Emergency Department Observation Unit. CMS rule requires 3 days hospital stay before such placement.3,13 [ ]e) Patient with failure to thrive due to broad array of etiologies 3,16,17 [ ]f) Inability to ambulate 3,14 Extended stay beyond goal length of stay may be needed for(2)(3): [ ]a) Persistent abdominal pain with suspected intra-abdominal process [ ]b) Diagnosed condition requiring continued stay (e.g., pancreatitis, complicated diverticulitis) [ ]c) Surgery (e.g., colectomy) The original [facility] content created by [employer] has been revised. The portions of the content which have been revised are identified through the use of italic text or in bold, and [facility] has neither reviewed nor approved the modified material.All other unmodified content is copyright [facility]. Please see references footnoted in the original [facility] edition 2016 Admission Criteria Met: Yes
[2016-07-15] MEDS ORDERED: LOVENOX SUB-Q SCH (10:00)
[2016-07-15] MEDS: ROCEPHIN/NS 1 GM/50 ML 1 GM/50 ML BAG IV SCH (10:53)
[2016-07-15] MEDS: NORVASC PO SCH (10:53)
[2016-07-15] MEDS: LOVENOX SUB-Q SCH (10:53)
--- NOTE | 2016-07-15 11:04 | Consultation ---
History of Present Illness Consult date: 07/15/16 Consult reason: abnormal cardiac enzymes, hypertension History of present illness: Patient was admitted through ER,when he fell down at home,apparently he was complaining of abdominal pain and brought to ER,was noted to have elevated Troponin leves.Hence consult. ER presentation:07/14/2016>HPI: This is a 76-year-old -[place] male who presents to the emergency department from home, with his children bedside, with complaint of left upper quadrant abdominal pain and/or left lower rib cage pain. They also say that the patient has not had his hypertension or Parkinson's meds in 3-4 days. 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 Patient does have a past medical history of hypertension and Parkinson's for which she takes carbidopa/levodopa, and Norvasc. Family is concerned as they say he appears weaker than usual. He normally ambulates with some assistance but does not appear as if he is able to move around at this time. He also presents with bilateral red eyes and some discharge coming from the eyes. He has a recent history of cataract removal. Past History Past Medical History: hypertension Past Surgical History: Other (hx. of stomach surgery.) Social history: (apparently for 2 years,spouse at bedside.Lives with spouse.) Medications and Allergies Allergies Allergy/AdvReac Type Severity Reaction Status Date / Time No Known Allergies Allergy Unverified 02/26/16 13:03 Home Medications Medication Instructions Recorded Confirmed Last Taken Type Carbidopa/Levodopa [Rytary ER 3 each PO ACHS 02/26/16 07/15/16 07/14/16 14:00 History 61.25 mg-245 mg Cap] Ofloxacin 0.3% [Floxin] 5 ml OT DAILY 02/26/16 07/14/16 Unknown History amLODIPine [Norvasc] 10 mg PO DAILY 02/26/16 07/15/16 07/14/16 10:00 History 10mg Active Meds: Active Medications Acetaminophen (Tylenol) 650 mg PO Q4H PRN PRN Reason: Pain MILD(1-3)/Fever >100.5/CARO Amlodipine Besylate (Norvasc) 10 mg PO DAILY ESTEVAN Last Admin: 07/15/16 10:53 Dose: 10 mg Bisacodyl (Dulcolax) 10 mg [place] QDAY PRN PRN Reason: Constipation unrelieved by MOM Enoxaparin Sodium (Lovenox) 40 mg SUB-Q QDAY@1000 ESTEVAN Last Admin: 07/15/16 10:53 Dose: 40 mg Dextrose (D5w) 1,000 mls @ 100 mls/hr IV DIRECT ESTEVAN Last Admin: 07/15/16 04:11 Dose: 100 mls/hr Ceftriaxone Sodium (Rocephin/Ns 1 Gm/50 Ml) 1 gm in 50 mls @ 100 mls/hr IV Q24HR ESTEVAN PRN Reason: Protocol Last Admin: 07/15/16 10:53 Dose: 100 mls/hr Influenza Virus Vaccine Quadrival (Fluarix Quad [id number](36 Mos+)) 60 mcg IM .ONCE ONE Stop: 07/15/16 12:01 Magnesium Hydroxide (Milk Of Magnesia) 30 ml PO Q4H PRN PRN Reason: Constipation Miscellaneous Medication (Carbidopa/Levodopa [Rytary Er 61.25 Mg-245 Mg Cap]) 3 each PO ACHS [facility] Ondansetron HCl (Zofran) 4 mg IV Q8H PRN PRN Reason: N/V unrelieved by Reglan Pneumococcal Polyvalent Vaccine (Pneumovax 23) 0.5 ml IM .ONCE ONE Stop: 07/15/16 12:01 Review of Systems Eyes: bilateral: discharge Ears, nose, mouth and throat: no ear discharge Cardiovascular: no chest pain, no orthopnea, no palpitations, no dyspnea on exertion Genitourinary Male: no hematuria Rectal: no incontinence Musculoskeletal: no neck pain Psychiatric: other (?dementia.) Hematologic/Lymphatic: no easy bleeding Allergic/Immunologic: no urticaria Physical Examination Vital Signs Pulse Ox 99 07/14/16 19:30 General appearance: no acute distress HEENT: Positive: PERRL Neck: Positive: neck supple, trachea midline Cardiac: Positive: Reg Rate and Rhythm. Negative: Audible Murmur Lungs: Positive: clear to auscultation Neuro: Positive: Grossly Intact Male genitourinary: Positive: deferred Incision: Incision Site (old scar midline abdomen.) Results 07/14/16 20:25 07/14/16 20:25 Cardiac Enzymes 07/15/16 07/15/16 Range/Units 02:03 07:30 CK-MB (CK-2) 8.6 H 7.0 H (0.0-4.0) ng/mL Laboratory Tests 07/14/16 07/15/16 07/15/16 20:20 02:03 07:30 Troponin T 0.062 H 0.052 H 0.037 H D Triglycerides 110 Cholesterol 202 H LDL Cholesterol Direct 127 EKG interpretations - Telemetry EKG Rhythm: Sinus Rhythm (done on 07/14/2016 shows S.R ,73/mt,LAD,unchanged from08/18/2010.) Assessment and Plan - Patient Problems (1) Elevated troponin Current Visit: Yes Status: Acute (2) Abdominal pain Current Visit: Yes Status: Acute Qualifiers: Abdominal location: left upper quadrant Qualified Code(s): R10.12 - Left upper quadrant pain (3) Parkinson disease Current Visit: Yes Status: Acute
[2016-07-15] MEDS ORDERED: CARBIDOPA PO SCH (11:30)
[2016-07-15] MEDS ORDERED: LEVODOPA PO SCH (11:30)
[2016-07-15] MEDS ORDERED: PNEUMOVAX 23 IM ONE (12:00)
[2016-07-15] MEDS ORDERED: FLUARIX QUAD 2016-2017(36 MOS+) IM ONE (12:00)
--- NOTE | 2016-07-15 13:28 | Progress Note ---
Assessment and Plan Assessment and plan: Fall at home hypertension. dementia Parkinson's disease. renew meds History Interval history: Fall at home Hospitalist Physical - Physical exam Narrative exam: Gen: appearance :Not in acute distress, HEENT: normocephalic atraumatic Neck :supple no JVD Lungs: clear to auscultation bilaterally, no crackles, or wheezes Heart:S1 and S2 regular, no murmurs, no gallop, no rubs Abdomen soft, non-tender, non-distended, normal bowel sounds Extremities: no edema, no clubbing, or cyanosis Neuro : Awake,alert Psych: calm - Constitutional Vitals: Temp Pulse Resp BP Pulse Ox 97.5 F L 55 L 16 171/82 99 07/15/16 08:10 07/15/16 10:53 07/15/16 08:10 07/15/16 10:53 07/15/16 10:00 General appearance: Present: no acute distress Results - Labs CBC & Chem 7: 07/14/16 20:25 07/15/16 14:36 Labs: Laboratory Last Values WBC 8.2 K/mm3 (4.5-11.0) 07/14/16 20:25 RBC 4.91 M/mm3 (3.65-5.03) 07/14/16 20:25 Hgb 14.5 gm/dl (11.8-15.2) 07/14/16 20:25 Hct 42.8 % (35.5-45.6) 07/14/16 20:25 MCV 87 fl (84-94) 07/14/16 20:25 MCH 29 pg (28-32) 07/14/16 20:25 MCHC 34 % (32-34) 07/14/16 20:25 RDW 14.5 % (13.2-15.2) 07/14/16 20:25 Plt Count 170 K/mm3 (140-440) 07/14/16 20:25 Lymph % (Auto) 17.0 % (13.4-35.0) 07/14/16 20:25 [place] % (Auto) 8.2 % (0.0-7.3) H 07/14/16 20:25 Eos % (Auto) 0.4 % (0.0-4.3) 07/14/16 20:25 Baso % (Auto) 0.6 % (0.0-1.8) 07/14/16 20:25 Lymph # 1.4 K/mm3 (1.2-5.4) 07/14/16 20:25 [place] # 0.7 K/mm3 (0.0-0.8) 07/14/16 20:25 Eos # 0.0 K/mm3 (0.0-0.4) 07/14/16 20:25 Baso # 0.0 K/mm3 (0.0-0.1) 07/14/16 20:25 Seg Neutrophils % 73.8 % (40.0-70.0) H 07/14/16 20:25 Seg Neutrophils # 6.0 K/mm3 (1.8-7.7) 07/14/16 20:25 Sodium 151 mmol/L (137-145) H 07/14/16 20:25 Potassium 3.6 mmol/L (3.6-5.0) 07/14/16 20:25 Chloride 114.2 mmol/L (98-107) H 07/14/16 20:25 Carbon Dioxide 22 mmol/L (22-30) 07/14/16 20:25 Anion Gap 18 mmol/L 07/14/16 20:25 BUN 40 mg/dL (9-20) H 07/14/16 20:25 Creatinine 1.2 mg/dL (0.8-1.5) 07/14/16 20:25 Estimated GFR > 60 ml/min 07/14/16 20:25 BUN/Creatinine Ratio 33.33 % 07/14/16 20:25 Glucose 113 mg/dL (75-100) H 07/14/16 20:25 Calcium 8.4 mg/dL (8.4-10.2) 07/14/16 20:25 Total Bilirubin 1.00 mg/dL (0.1-1.2) 07/14/16 20:20 Direct Bilirubin 0.2 mg/dL (0-0.2) 07/14/16 20:20 Indirect Bilirubin 0.8 mg/dL 07/14/16 20:20 AST 97 units/L (5-40) H 07/14/16 20:20 ALT < 5 units/L (7-56) L 07/14/16 20:20 Alkaline Phosphatase 51 units/L (35-129) 07/14/16 20:20 Total Creatine Kinase 4708 units/L (55-170) H 07/15/16 07:30 CK-MB (CK-2) 7.0 ng/mL (0.0-4.0) H 07/15/16 07:30 CK-MB (CK-2) Rel Index 0.1 (0-4) 07/15/16 07:30 Troponin T 0.037 ng/mL (0.00-0.029) H D 07/15/16 07:30 Total Protein 7.4 g/dL (6.3-8.2) 07/14/16 20:20 Albumin 3.5 g/dL (3.9-5) L 07/14/16 20:20 Albumin/Globulin Ratio 0.9 % 07/14/16 20:20 Triglycerides 110 mg/dL (2-149) 07/14/16 20:20 Cholesterol 202 mg/dL (50-199) H 07/14/16 20:20 LDL Cholesterol Direct 127 mg/dL (50-130) 07/14/16 20:20 HDL Cholesterol 53 mg/dL (40-59) 07/14/16 20:20 Cholesterol/HDL Ratio 3.81 % 07/14/16 20:20 Lipase 22 units/L (13-60) 07/14/16 20:20 Urine Color Yellow (Yellow) 07/14/16 20:35 Urine Turbidity Clear (Clear) 07/14/16 20:35 Urine pH 5.0 (5.0-7.0) 07/14/16 20:35 Ur Specific [place] 1.023 (1.003-1.030) 07/14/16 20:35 Urine Protein 30 mg/dl mg/dL (Negative) 07/14/16 20:35 Urine Glucose (UA) Neg mg/dL (Negative) 07/14/16 20:35 Urine Ketones Tr mg/dL (Negative) 07/14/16 20:35 Urine Blood Lg (Negative) 07/14/16 20:35 Urine Nitrite Neg (Negative) 07/14/16 20:35 Urine Bilirubin Neg (Negative) 07/14/16 20:35 Urine Urobilinogen < 2.0 mg/dL (<2.0) 07/14/16 20:35 Ur Leukocyte Esterase Neg (Negative) 07/14/16 20:35 Urine WBC (Auto) 42.0 /HPF (0.0-6.0) H 07/14/16 20:35 Urine RBC (Auto) 32.0 /HPF (0.0-6.0) 07/14/16 20:35 U Epithel Cells (Auto) < 1.0 /HPF (0-13.0) 07/14/16 20:35 Urine Mucus Few /HPF 07/14/16 20:35 Urine Opiates Screen Presumptive negative 07/14/16 20:35 Urine Methadone Screen Presumptive negative 07/14/16 20:35 Ur Barbiturates Screen Presumptive negative 07/14/16 20:35 Ur Phencyclidine Scrn Presumptive negative 07/14/16 20:35 Ur Amphetamines Screen Presumptive negative 07/14/16 20:35 U Benzodiazepines Scrn Presumptive negative 07/14/16 20:35 Urine Cocaine Screen Presumptive negative 07/14/16 20:35 U Marijuana (THC) Screen Presumptive negative 07/14/16 20:35 Drugs of Abuse Note Disclamer 07/14/16 20:35
[2016-07-15] MEDS: CARBIDOPA PO SCH ×2 (14:13→22:03)
[2016-07-15] MEDS: LEVODOPA PO SCH ×2 (14:13→22:03)
[2016-07-15 15:20] LABS: Anion Gap 19 mmol/L; Blood Urea Nitrogen 30 mg/dL (9-20); Carbon Dioxide 21 mmol/L (22-30); Chloride 111.6 mmol/L (98-107); Glucose 121 mg/dL (75-100); Potassium 3.5 mmol/L (3.6-5.0); Sodium 148 mmol/L (137-145)
[2016-07-15 15:22] LABS: Creatine Kinase MB 5.9 ng/mL (0.0-4.0)
--- NOTE | 2016-07-15 16:43 | Event Note ---
Date: 07/15/16 Patient with dementia, Parkinson's disease, brought to hospital because of generalized weakness and fall. Cardiac enzymes elevated. He was seen and examined. Continue current management. Discussed case with cardiology
[2016-07-16] MEDS: D5W 1,000 ML IV SCH ×2 (03:09→14:16)
[2016-07-16] MEDS: CARBIDOPA PO SCH ×3 (08:03→20:40)
[2016-07-16] MEDS: LEVODOPA PO SCH ×3 (08:03→20:40)
[2016-07-16 08:04] LABS: Hematocrit 42.4 % (35.5-45.6); Mean Corpuscular HGB Conc 33 % (32-34); Mean Corpuscular Hemoglobin 29 pg (28-32); Mean Corpuscular Volume 88 fl (84-94); Platelet Count 164 K/mm3 (140-440); Red Blood Count 4.84 M/mm3 (3.65-5.03); Red Cell Distribution Width 14.1 % (13.2-15.2); White Blood Count 4.5 K/mm3 (4.5-11.0)
[2016-07-16 08:17] LABS: BUN/Creatinine Ratio 27.14; Blood Urea Nitrogen 19 mg/dL (9-20); Calcium 7.7 mg/dL (8.4-10.2); Carbon Dioxide 24 mmol/L (22-30); Chloride 104.2 mmol/L (98-107); Glucose 113 mg/dL (75-100); Sodium 139 mmol/L (137-145)
[2016-07-16 08:18] LABS: Creatine Kinase MB 5.6 ng/mL (0.0-4.0)
[2016-07-16 08:20] LABS: Basophils % (Auto) 0.4 % (0.0-1.8); Eosinophils % (Auto) 4.8 % (0.0-4.3)
[2016-07-16 08:42] LABS: Anion Gap 15 mmol/L; Potassium 3.8 mmol/L (3.6-5.0)
[2016-07-16] MEDS: ROCEPHIN/NS 1 GM/50 ML 1 GM/50 ML BAG IV SCH (10:22)
[2016-07-16] MEDS: LOVENOX SUB-Q SCH (10:23)
[2016-07-16] MEDS: NORVASC PO SCH (10:23)
[2016-07-16] MEDS: HALFPRIN EC PO SCH (10:24)
--- NOTE | 2016-07-16 10:41 | Progress Note ---
Assessment and Plan Assessment and plan: Fall at home. Dementia. Continue supportive care Parkinsons disease. Resumed home meds. Elevated Troponins, no specifical, may be due to rhabdomyolysis Rhabdomyolysis. Started on iv fluids. Check CK serially. Hypertension. On Norvasc UTI. Continue Rocephin daily. DVT prophylaxis with Lovenox Full code status History Interval history: feels better, generalized weakness Hospitalist Physical - Physical exam Narrative exam: Gen: appearance :Not in acute distress, HEENT: normocephalic, atraumatic Neck :supple no JVD Lungs: clear to auscultation bilaterally, no crackles, or wheezes Heart:S1 and S2 regular, no murmurs, no gallop, no rubs Abdomen soft, non-tender, non-distended, normal bowel sounds Extremities: no edema, no clubbing, or cyanosis Neuro : Awake, alert,dementia Psych: calm - Constitutional Vitals: Temp Pulse Resp BP Pulse Ox 97.8 F 57 L 18 134/78 99 07/16/16 05:00 07/16/16 10:23 07/16/16 05:00 07/16/16 10:23 07/16/16 05:00 General appearance: Present: no acute distress Results - Labs CBC & Chem 7: 07/16/16 07:23 07/16/16 07:23 Labs: Laboratory Last Values WBC 4.5 K/mm3 (4.5-11.0) 07/16/16 07:23 RBC 4.84 M/mm3 (3.65-5.03) 07/16/16 07:23 Hgb 14.0 gm/dl (11.8-15.2) 07/16/16 07:23 Hct 42.4 % (35.5-45.6) 07/16/16 07:23 MCV 88 fl (84-94) 07/16/16 07:23 MCH 29 pg (28-32) 07/16/16 07:23 MCHC 33 % (32-34) 07/16/16 07:23 RDW 14.1 % (13.2-15.2) 07/16/16 07:23 Plt Count 164 K/mm3 (140-440) 07/16/16 07:23 Lymph % (Auto) 29.1 % (13.4-35.0) 07/16/16 07:23 [place] % (Auto) 6.0 % (0.0-7.3) 07/16/16 07:23 Eos % (Auto) 4.8 % (0.0-4.3) H 07/16/16 07:23 Baso % (Auto) 0.4 % (0.0-1.8) 07/16/16 07:23 Lymph # 1.4 K/mm3 (1.2-5.4) 07/16/16 07:23 [place] # 0.3 K/mm3 (0.0-0.8) 07/16/16 07:23 Eos # 0.2 K/mm3 (0.0-0.4) 07/16/16 07:23 Baso # 0.0 K/mm3 (0.0-0.1) 07/16/16 07:23 Seg Neutrophils % 59.7 % (40.0-70.0) 07/16/16 07:23 Seg Neutrophils # 2.8 K/mm3 (1.8-7.7) 07/16/16 07:23 Sodium 139 mmol/L (137-145) D 07/16/16 07:23 Potassium 3.8 mmol/L (3.6-5.0) 07/16/16 07:23 Chloride 104.2 mmol/L (98-107) 07/16/16 07:23 Carbon Dioxide 24 mmol/L (22-30) 07/16/16 07:23 Anion Gap 15 mmol/L 07/16/16 07:23 BUN 19 mg/dL (9-20) 07/16/16 07:23 Creatinine 0.7 mg/dL (0.8-1.5) L 07/16/16 07:23 Estimated GFR > 60 ml/min 07/16/16 07:23 BUN/Creatinine Ratio 27.14 % 07/16/16 07:23 Glucose 113 mg/dL (75-100) H 07/16/16 07:23 Calcium 7.7 mg/dL (8.4-10.2) L 07/16/16 07:23 Total Bilirubin 1.00 mg/dL (0.1-1.2) 07/14/16 20:20 Direct Bilirubin 0.2 mg/dL (0-0.2) 07/14/16 20:20 Indirect Bilirubin 0.8 mg/dL 07/14/16 20:20 AST 97 units/L (5-40) H 07/14/16 20:20 ALT < 5 units/L (7-56) L 07/14/16 20:20 Alkaline Phosphatase 51 units/L (35-129) 07/14/16 20:20 Total Creatine Kinase 3082 units/L (55-170) H 07/16/16 07:23 CK-MB (CK-2) 5.6 ng/mL (0.0-4.0) H 07/16/16 07:23 CK-MB (CK-2) Rel Index 0.1 (0-4) 07/16/16 07:23 Troponin T 0.037 ng/mL (0.00-0.029) H D 07/15/16 07:30 Total Protein 7.4 g/dL (6.3-8.2) 07/14/16 20:20 Albumin 3.5 g/dL (3.9-5) L 07/14/16 20:20 Albumin/Globulin Ratio 0.9 % 07/14/16 20:20 Triglycerides 110 mg/dL (2-149) 07/14/16 20:20 Cholesterol 202 mg/dL (50-199) H 07/14/16 20:20 LDL Cholesterol Direct 127 mg/dL (50-130) 07/14/16 20:20 HDL Cholesterol 53 mg/dL (40-59) 07/14/16 20:20 Cholesterol/HDL Ratio 3.81 % 07/14/16 20:20 Lipase 22 units/L (13-60) 07/14/16 20:20 Urine Color Yellow (Yellow) 07/14/16 20:35 Urine Turbidity Clear (Clear) 07/14/16 20:35 Urine pH 5.0 (5.0-7.0) 07/14/16 20:35 Ur Specific [place] 1.023 (1.003-1.030) 07/14/16 20:35 Urine Protein 30 mg/dl mg/dL (Negative) 07/14/16 20:35 Urine Glucose (UA) Neg mg/dL (Negative) 07/14/16 20:35 Urine Ketones Tr mg/dL (Negative) 07/14/16 20:35 Urine Blood Lg (Negative) 07/14/16 20:35 Urine Nitrite Neg (Negative) 07/14/16 20:35 Urine Bilirubin Neg (Negative) 07/14/16 20:35 Urine Urobilinogen < 2.0 mg/dL (<2.0) 07/14/16 20:35 Ur Leukocyte Esterase Neg (Negative) 07/14/16 20:35 Urine WBC (Auto) 42.0 /HPF (0.0-6.0) H 07/14/16 20:35 Urine RBC (Auto) 32.0 /HPF (0.0-6.0) 07/14/16 20:35 U Epithel Cells (Auto) < 1.0 /HPF (0-13.0) 07/14/16 20:35 Urine Mucus Few /HPF 07/14/16 20:35 Urine Opiates Screen Presumptive negative 07/14/16 20:35 Urine Methadone Screen Presumptive negative 07/14/16 20:35 Ur Barbiturates Screen Presumptive negative 07/14/16 20:35 Ur Phencyclidine Scrn Presumptive negative 07/14/16 20:35 Ur Amphetamines Screen Presumptive negative 07/14/16 20:35 U Benzodiazepines Scrn Presumptive negative 07/14/16 20:35 Urine Cocaine Screen Presumptive negative 07/14/16 20:35 U Marijuana (THC) Screen Presumptive negative 07/14/16 20:35 Drugs of Abuse Note Disclamer 07/14/16 20:35
--- NOTE | 2016-07-16 16:51 | Progress Note ---
Assessment and Plan Due to elevated troponin and LV systolic dysfunction, will schedule Lexiscan stress MPI in a.m. This has been discussed with the patient and family. - Patient Problems (1) Elevated troponin Current Visit: Yes Status: Acute (2) Cardiomyopathy Current Visit: Yes Status: Acute Qualifiers: Cardiomyopathy type: other Qualified Code(s): I42.8 - Other cardiomyopathies (3) Rhabdomyolysis Current Visit: Yes Status: Acute Qualifiers: Rhabdomyolysis type: non-traumatic Encounter type: E Qualified Code(s): M62.82 - Rhabdomyolysis (4) Dehydration Current Visit: Yes Status: Resolved (5) Weakness generalized Current Visit: Yes Status: Acute (6) Parkinson disease Current Visit: Yes Status: Chronic Subjective Date of service: 07/16/16 Principal diagnosis: Elevated Tn, Rhabdomyolysis, Weakness, Dehydration, CMP, Parkinson's dx Interval history: No new complaint. Objective Vital Signs Temp Pulse Pulse Pulse Resp BP BP 07/16/16 11:14 97.6 F 51 L 12 111/65 07/16/16 10:23 57 L 134/78 07/16/16 05:00 97.8 F 50 L 18 141/75 07/16/16 03:00 50 L 07/16/16 00:00 97.6 F 51 L 18 132/71 07/15/16 21:00 97.7 F 52 L 18 123/70 Pulse Ox 07/16/16 11:14 99 07/16/16 10:23 07/16/16 05:00 99 07/16/16 03:00 07/16/16 00:00 100 07/15/16 21:00 100 - Physical Examination General: No Apparent Distress HEENT: Positive: EOMI, Normocephaly, Mucus Membranes Moist Neck: Positive: neck supple, trachea midline Cardiac: Positive: Reg Rate and Rhythm, S1/S2 Lungs: Positive: clear to auscultation Neuro: Positive: Grossly Intact Abdomen: Positive: Soft, Active Bowel Sounds. Negative: Tender Skin: Positive: Clear. Negative: Rash Musculoskeletal: No Fluid Collection, No Pain Extremities: Absent: edema - Labs and Meds Cardiac Enzymes 07/15/16 07/16/16 Range/Units 22:13 07:23 CK-MB (CK-2) 6.0 H 5.6 H (0.0-4.0) ng/mL CBC 07/16/16 Range/Units 07:23 WBC 4.5 (4.5-11.0) K/mm3 RBC 4.84 (3.65-5.03) M/mm3 Hgb 14.0 (11.8-15.2) gm/dl Hct 42.4 (35.5-45.6) % Plt Count 164 (140-440) K/mm3 Lymph # 1.4 (1.2-5.4) K/mm3 [place] # 0.3 (0.0-0.8) K/mm3 Eos # 0.2 (0.0-0.4) K/mm3 Baso # 0.0 (0.0-0.1) K/mm3 Comprehensive Metabolic Panel 07/16/16 Range/Units 07:23 Sodium 139 D (137-145) mmol/L Potassium 3.8 (3.6-5.0) mmol/L Chloride 104.2 (98-107) mmol/L Carbon Dioxide 24 (22-30) mmol/L BUN 19 (9-20) mg/dL Creatinine 0.7 L (0.8-1.5) mg/dL Glucose 113 H (75-100) mg/dL Calcium 7.7 L (8.4-10.2) mg/dL - Imaging and Cardiology EKG: image reviewed Echo: report reviewed - Telemetry EKG Rhythm: Sinus Bradycardia
[2016-07-16 19:53] LABS: Creatine Kinase MB 6.2 ng/mL (0.0-4.0)
[2016-07-16 23:06] LABS: Creatine Kinase MB 5.6 ng/mL (0.0-4.0)
[2016-07-17] MEDS ORDERED: LEXISCAN IV ONE ×2 (08:04→08:11)
[2016-07-17 08:56] LABS: Anion Gap 13 mmol/L; BUN/Creatinine Ratio 18.57; Blood Urea Nitrogen 13 mg/dL (9-20); Calcium 7.8 mg/dL (8.4-10.2); Carbon Dioxide 23 mmol/L (22-30); Chloride 103.3 mmol/L (98-107); Creatine Kinase 1828 units/L (55-170); Glucose 103 mg/dL (75-100); Potassium 3.7 mmol/L (3.6-5.0); Sodium 136 mmol/L (137-145)
--- NOTE | 2016-07-17 12:32 | Progress Note ---
Assessment and Plan With only mild ischemia noted on his stress test, in the absence of angina, we will continue medical management. Stable cardiac status. - Patient Problems (1) Elevated troponin Current Visit: Yes Status: Acute (2) Cardiomyopathy Current Visit: Yes Status: Acute Qualifiers: Cardiomyopathy type: other Qualified Code(s): I42.8 - Other cardiomyopathies (3) Rhabdomyolysis Current Visit: Yes Status: Acute Qualifiers: Rhabdomyolysis type: non-traumatic Encounter type: E Qualified Code(s): M62.82 - Rhabdomyolysis (4) Dehydration Current Visit: Yes Status: Resolved (5) Weakness generalized Current Visit: Yes Status: Acute (6) Parkinson disease Current Visit: Yes Status: Chronic Subjective Date of service: 07/17/16 Principal diagnosis: Elevated Tn, Rhabdomyolysis, Weakness, Dehydration, CMP, Parkinson's dx Interval history: He has no complaint today. This morning, he underwent a Lexiscan stress MPI which revealed mild ischemia. Objective Vital Signs Last Vital Signs Temp 97.9 F 07/17/16 08:15 Pulse 80 07/17/16 09:40 Resp 16 07/17/16 08:15 BP 117/69 07/17/16 09:40 Pulse Ox 100 07/17/16 08:15 - Physical Examination General: No Apparent Distress HEENT: Positive: EOMI, Normocephaly, Mucus Membranes Moist Neck: Positive: neck supple, trachea midline Cardiac: Positive: Reg Rate and Rhythm, S1/S2 Lungs: Positive: clear to auscultation Neuro: Positive: Grossly Intact Abdomen: Positive: Soft, Active Bowel Sounds. Negative: Tender Skin: Positive: Clear. Negative: Rash Incision: Incision Site (old scar midline abdomen.) Musculoskeletal: No Fluid Collection, No Pain Extremities: Absent: edema - Labs and Meds Cardiac Enzymes 07/16/16 07/16/16 Range/Units 19:13 22:26 CK-MB (CK-2) 6.2 H 5.6 H (0.0-4.0) ng/mL Comprehensive Metabolic Panel 07/17/16 Range/Units 07:33 Sodium 136 L (137-145) mmol/L Potassium 3.7 (3.6-5.0) mmol/L Chloride 103.3 (98-107) mmol/L Carbon Dioxide 23 (22-30) mmol/L BUN 13 (9-20) mg/dL Creatinine 0.7 L (0.8-1.5) mg/dL Glucose 103 H (75-100) mg/dL Calcium 7.8 L (8.4-10.2) mg/dL - Imaging and Cardiology EKG: image reviewed Echo: report reviewed
[2016-07-17] MEDS: ROCEPHIN/NS 1 GM/50 ML 1 GM/50 ML BAG IV SCH (13:40)
[2016-07-17] MEDS: NORVASC PO SCH (13:41)
[2016-07-17] MEDS: HALFPRIN EC PO SCH (13:42)
[2016-07-17] MEDS: LEVODOPA PO SCH ×3 (13:43→21:38)
[2016-07-17] MEDS: CARBIDOPA PO SCH ×3 (13:43→21:38)
[2016-07-17] MEDS: LOVENOX SUB-Q SCH (13:59)
--- NOTE | 2016-07-17 18:10 | Progress Note ---
Assessment and Plan Assessment and plan: Fall at home. Dementia. Continue supportive care Parkinsons disease. Resumed home meds. Elevated Troponins. Stress test done, report pending. No chest pain Rhabdomyolysis. Started on iv fluids. Improving Creatine kinase 1828 today from 5694 on admission. Hypertension. On Norvasc UTI. Continue Rocephin daily. DVT prophylaxis with Lovenox Full code status History Interval history: feels better, generalized weakness improving, no chest pain Hospitalist Physical - Physical exam Narrative exam: Gen appearance :Not in acute distress, HEENT: normocephalic, atraumatic Neck :supple no JVD Lungs: clear to auscultation bilaterally, no crackles, or wheezes Heart:S1 and S2 regular, no murmurs, no gallop, no rubs Abdomen soft, non-tender, non-distended, normal bowel sounds Extremities: no edema, no clubbing, or cyanosis Neuro : Awake, alert,dementia Psych: calm - Constitutional Vitals: Temp Pulse Resp BP Pulse Ox 97.9 F 76 16 146/80 100 07/17/16 08:15 07/17/16 15:48 07/17/16 08:15 07/17/16 13:41 07/17/16 08:15 General appearance: Present: no acute distress Results - Labs CBC & Chem 7: 07/16/16 07:23 07/17/16 07:33 Labs: Laboratory Last Values WBC 4.5 K/mm3 (4.5-11.0) 07/16/16 07:23 RBC 4.84 M/mm3 (3.65-5.03) 07/16/16 07:23 Hgb 14.0 gm/dl (11.8-15.2) 07/16/16 07:23 Hct 42.4 % (35.5-45.6) 07/16/16 07:23 MCV 88 fl (84-94) 07/16/16 07:23 MCH 29 pg (28-32) 07/16/16 07:23 MCHC 33 % (32-34) 07/16/16 07:23 RDW 14.1 % (13.2-15.2) 07/16/16 07:23 Plt Count 164 K/mm3 (140-440) 07/16/16 07:23 Lymph % (Auto) 29.1 % (13.4-35.0) 07/16/16 07:23 [place] % (Auto) 6.0 % (0.0-7.3) 07/16/16 07:23 Eos % (Auto) 4.8 % (0.0-4.3) H 07/16/16 07:23 Baso % (Auto) 0.4 % (0.0-1.8) 07/16/16 07:23 Lymph # 1.4 K/mm3 (1.2-5.4) 07/16/16 07:23 [place] # 0.3 K/mm3 (0.0-0.8) 07/16/16 07:23 Eos # 0.2 K/mm3 (0.0-0.4) 07/16/16 07:23 Baso # 0.0 K/mm3 (0.0-0.1) 07/16/16 07:23 Seg Neutrophils % 59.7 % (40.0-70.0) 07/16/16 07:23 Seg Neutrophils # 2.8 K/mm3 (1.8-7.7) 07/16/16 07:23 Sodium 136 mmol/L (137-145) L 07/17/16 07:33 Potassium 3.7 mmol/L (3.6-5.0) 07/17/16 07:33 Chloride 103.3 mmol/L (98-107) 07/17/16 07:33 Carbon Dioxide 23 mmol/L (22-30) 07/17/16 07:33 Anion Gap 13 mmol/L 07/17/16 07:33 BUN 13 mg/dL (9-20) 07/17/16 07:33 Creatinine 0.7 mg/dL (0.8-1.5) L 07/17/16 07:33 Estimated GFR > 60 ml/min 07/17/16 07:33 BUN/Creatinine Ratio 18.57 % 07/17/16 07:33 Glucose 103 mg/dL (75-100) H 07/17/16 07:33 Calcium 7.8 mg/dL (8.4-10.2) L 07/17/16 07:33 Total Bilirubin 1.00 mg/dL (0.1-1.2) 07/14/16 20:20 Direct Bilirubin 0.2 mg/dL (0-0.2) 07/14/16 20:20 Indirect Bilirubin 0.8 mg/dL 07/14/16 20:20 AST 97 units/L (5-40) H 07/14/16 20:20 ALT < 5 units/L (7-56) L 07/14/16 20:20 Alkaline Phosphatase 51 units/L (35-129) 07/14/16 20:20 Total Creatine Kinase 1828 units/L (55-170) H 07/17/16 07:33 CK-MB (CK-2) 5.6 ng/mL (0.0-4.0) H 07/16/16 22:26 CK-MB (CK-2) Rel Index 0.2 (0-4) 07/16/16 22: Troponin T 0.037 ng/mL (0.00-0.029) H D 07/15/16 07:30 Total Protein 7.4 g/dL (6.3-8.2) 07/14/16 20:20 Albumin 3.5 g/dL (3.9-5) L 07/14/16 20:20 Albumin/Globulin Ratio 0.9 % 07/14/16 20:20 Triglycerides 110 mg/dL (2-149) 07/14/16 20:20 Cholesterol 202 mg/dL (50-199) H 07/14/16 20:20 LDL Cholesterol Direct 127 mg/dL (50-130) 07/14/16 20:20 HDL Cholesterol 53 mg/dL (40-59) 07/14/16 20:20 Cholesterol/HDL Ratio 3.81 % 07/14/16 20:20 Lipase 22 units/L (13-60) 07/14/16 20:20 Urine Color Yellow (Yellow) 07/14/16 20:35 Urine Turbidity Clear (Clear) 07/14/16 20:35 Urine pH 5.0 (5.0-7.0) 07/14/16 20:35 Ur Specific [place] 1.023 (1.003-1.030) 07/14/16 20:35 Urine Protein 30 mg/dl mg/dL (Negative) 07/14/16 20:35 Urine Glucose (UA) Neg mg/dL (Negative) 07/14/16 20:35 Urine Ketones Tr mg/dL (Negative) 07/14/16 20:35 Urine Blood Lg (Negative) 07/14/16 20:35 Urine Nitrite Neg (Negative) 07/14/16 20:35 Urine Bilirubin Neg (Negative) 07/14/16 20:35 Urine Urobilinogen < 2.0 mg/dL (<2.0) 07/14/16 20:35 Ur Leukocyte Esterase Neg (Negative) 07/14/16 20:35 Urine WBC (Auto) 42.0 /HPF (0.0-6.0) H 07/14/16 20:35 Urine RBC (Auto) 32.0 /HPF (0.0-6.0) 07/14/16 20:35 U Epithel Cells (Auto) < 1.0 /HPF (0-13.0) 07/14/16 20:35 Urine Mucus Few /HPF 07/14/16 20:35 Urine Opiates Screen Presumptive negative 07/14/16 20:35 Urine Methadone Screen Presumptive negative 07/14/16 20:35 Ur Barbiturates Screen Presumptive negative 07/14/16 20:35 Ur Phencyclidine Scrn Presumptive negative 07/14/16 20:35 Ur Amphetamines Screen Presumptive negative 07/14/16 20:35 U Benzodiazepines Scrn Presumptive negative 07/14/16 20:35 Urine Cocaine Screen Presumptive negative 07/14/16 20:35 U Marijuana (THC) Screen Presumptive negative 07/14/16 20:35 Drugs of Abuse Note Disclamer 07/14/16 20:35
[2016-07-17] MEDS: D5W 1,000 ML IV SCH (21:39)
--- NOTE | 2016-07-17 21:56 | Treadmill Report ---
LEXISCAN STRESS TEST REPORT REASON FOR STUDY: Cardiomyopathy. STRESS TEST PROTOCOL: The patient received 0.4 mg of Lexiscan intravenously over 10 seconds. Tc-99m tetrofosmin was subsequently injected. Baseline EKG, normal sinus rhythm. Lexiscan EKG, no diagnostic ischemic changes. No chest pain. No arrhythmias. IMPRESSION: Electrocardiographically negative stress test. Nuclear imaging report to follow. [facility]# [id number] KEITH/NTS
--- NOTE | 2016-07-18 00:16 | Treadmill Report ---
REASON FOR STUDY: Elevated troponin level and cardiomyopathy. IMAGING PROTOCOL DICTATION ENDS HERE JOB# [id number] KEITH/ALFONZO
--- NOTE | 2016-07-18 04:19 | Treadmill Report ---
THALLIUM REPORT REASON FOR STUDY: Elevated troponin and cardiomyopathy. IMAGING PROTOCOL: The patient received tc99m Tetrofosmin for stress and rest imaging. Imaging was performed using the usual protocol. NUCLEAR IMAGING RESULTS: Normal left ventricular cavity size with no change from stress to rest. Distribution of radionuclide within the left ventricle revealed a medium sized area of photo-induction involving the apex. The degree of photo-induction is moderate. Rest imaging showed partial improvement in this defect. In addition, there is a large area of photo-induction involving the inferior wall. The degree of photo-induction is moderate. Rest imaging does not show any significant improvement in this defect. Gated SPECT imaging revealed normal global LV systolic function with severe inferior and septal hypokinesis. The calculated left ventricular ejection fraction is 54%. IMPRESSION: Medium sized, partially reversible apical defect. Large fixed inferior wall defect. Normal global LV systolic function with severe inferior and septal hypokinesis. EF 54%. These findings suggest prior infarction with mild residual ischemia in the left anterior descending coronary artery territory. In addition, there is suggestion of prior infarction in the right coronary artery territory. Although gated SPECT imaging revealed a calculated ejection fraction of 54%, this may be an overestimation of the ejection infarction in this patient. With visual assessment, the LV systolic function appears to be mild to moderately reduced and the ejection fraction may be closer to 40-45%, considering the severe inferior and septal hypokinesis. [facility]# [id number] KEITH/ALFONZO QUINTANILLA
[2016-07-18] MEDS: CARBIDOPA PO SCH ×3 (08:00→20:25)
[2016-07-18] MEDS: LEVODOPA PO SCH ×3 (08:00→20:25)
[2016-07-18] MEDS: NORVASC PO SCH (10:49)
[2016-07-18] MEDS: HALFPRIN EC PO SCH (10:49)
[2016-07-18] MEDS: LOVENOX SUB-Q SCH (10:50)
[2016-07-18] MEDS: ROCEPHIN/NS 1 GM/50 ML 1 GM/50 ML BAG IV SCH (10:50)
--- NOTE | 2016-07-18 14:18 | Progress Note ---
Assessment and Plan With only mild ischemia noted on his stress test, in the absence of angina, we will continue medical management. Stable cardiac status. Will see PRN. Recommend follow up in our office with Nohemy Wade NP, within 2 weeks of hospital discharge ([phone]). The patient has been seen in conjunction with Dr. EVER Lynch who agrees with the assessment and plan of care. - Patient Problems (1) Elevated troponin Current Visit: Yes Status: Acute (2) Cardiomyopathy Current Visit: Yes Status: Acute Qualifiers: Cardiomyopathy type: other Qualified Code(s): I42.8 - Other cardiomyopathies (3) Rhabdomyolysis Current Visit: Yes Status: Acute Qualifiers: Rhabdomyolysis type: non-traumatic Encounter type: E Qualified Code(s): M62.82 - Rhabdomyolysis (4) Dehydration Current Visit: Yes Status: Resolved (5) Weakness generalized Current Visit: Yes Status: Acute (6) Parkinson disease Current Visit: Yes Status: Chronic Subjective Date of service: 07/18/16 Principal diagnosis: Elevated Tn, Rhabdomyolysis, Weakness, Dehydration, CMP, Parkinson's dx Interval history: Pt resting in bed, no complaints. VSS. Objective Last Vital Signs Temp 98.3 F 07/18/16 10:31 Pulse 88 07/18/16 10:49 Resp 16 07/18/16 10:31 BP 115/60 07/18/16 10:49 Pulse Ox 99 07/18/16 10:31 - Physical Examination General: No Apparent Distress HEENT: Positive: EOMI, Normocephaly, Mucus Membranes Moist Neck: Positive: neck supple, trachea midline Cardiac: Positive: Reg Rate and Rhythm, S1/S2 Neuro: Positive: Grossly Intact Abdomen: Positive: Soft, Active Bowel Sounds. Negative: Tender Skin: Positive: Clear. Negative: Rash Incision: Incision Site (old scar midline abdomen.) Musculoskeletal: No Fluid Collection, No Pain Extremities: Absent: edema - Imaging and Cardiology EKG: image reviewed Echo: report reviewed
[2016-07-18] MEDS: D5W 1,000 ML IV SCH (15:28)
--- NOTE | 2016-07-18 15:44 | Discharge Summary ---
Providers - Providers Date of Admission: 07/15/16 01:47 Date of discharge: 07/18/16 Attending physician: DUNG ARCOS Primary care physician: EDWARD ROQUE MD Hospitalization Condition: Fair Disposition: [id number] HOME [facility] - Discharge Diagnoses (1) Cardiomyopathy Status: Acute Qualifiers: Cardiomyopathy type: other Qualified Code(s): I42.8 - Other cardiomyopathies (2) Rhabdomyolysis Status: Acute Qualifiers: Rhabdomyolysis type: non-traumatic Encounter type: E Qualified Code(s): M62.82 - Rhabdomyolysis Exam - Constitutional Vitals: Temp Pulse Resp BP Pulse Ox 98.3 F 88 16 115/60 99 07/18/16 10:31 07/18/16 10:49 07/18/16 10:31 07/18/16 10:49 07/18/16 10:31 Plan Activity: advance as tolerated Diet: low fat, low cholesterol, low salt Additional Instructions: 1.Follow up with PCP in 1 week. 2.Follow up with Nohemy Wade NP in Office in 1-2 weeks Follow up with: PRIMARY CAREMD [Primary Care Provider] - 3-5 Days Prescriptions: Aspirin EC [Aspirin Enteric Coated TAB] 81 mg PO QDAY #30 tablet AtorvaSTATin [Lipitor] 20 mg PO QHS #30 tablet
[2016-07-19] MEDS: LEVODOPA PO SCH (08:29)
[2016-07-19] MEDS: CARBIDOPA PO SCH (08:29)
[2016-07-19 09:02] VITALS: BP 175/94
[2016-07-19] MEDS: HALFPRIN EC PO SCH (11:20)
[2016-07-19] MEDS: NORVASC PO SCH (11:20)
[2016-07-19] MEDS: LOVENOX SUB-Q SCH (11:21)
[2016-07-19] MEDS: ROCEPHIN/NS 1 GM/50 ML 1 GM/50 ML BAG IV SCH (11:21)
--- NOTE | 2016-07-20 15:47 | Event Note ---
Date: 07/19/16 Patient tolerated discharged. I do see the patient briefly discussed with family prior to the patient. I did discuss the findings of the STRESS TEST. Patient is responsive at this time. All questions answered condition at this time stable.
== END 2016-07-19 13:57 | disposition home health service (06) | DRG 248 ==
LOC: ED 19:20 → 4A 07-15 01:47
PROVIDERS: ADMIT Internal Medicine; ATTEND Internal Medicine
PROC: 3E0234Z Introduction of Serum, Toxoid and Vaccine into Muscle, Percutaneous Approach (ICD-10-PCS; principal; 2016-07-15)
DX: M62.82 Rhabdomyolysis (principal); E87.0 Hyperosmolality and hypernatremia; N39.0 Urinary tract infection, site not specified; I42.9 Cardiomyopathy, unspecified; E86.0 Dehydration; I10 Essential (primary) hypertension; G20 Parkinson's disease; W18.39XA Other fall on same level, initial encounter; F02.80 Dementia in other diseases classified elsewhere, unspecified severity, without behavioral disturbance, psychotic disturbance, mood disturbance, and anxiety; Z82.49 Family history of ischemic heart disease and other diseases of the circulatory system; Y93.89 Activity, other specified; Y92.89 Other specified places as the place of occurrence of the external cause; Y99.8 Other external cause status
CPT/HCPCS: 36415; 70450; 74022; 74176; 78452; 80048; 80061; 80074; 80307; 81001; 82550; 82553; 83690; 84484; 85025; 87086; 90686; 90732; 93005; 93010; 93017; 93306; 96360; A9270-GY; A9502; J0696; J1650; J2785; J7030; J7070

== ENCOUNTER 2017-02-03 08:02 | Emergency (ER) | payer MEDICARE ==
[2017-02-03] MEDS ORDERED: BOOSTRIX IM ONE (08:55)
--- NOTE | 2017-02-03 08:59 | Emergency Department Report ---
HPI - General Chief Complaint: Wound/Laceration Time Seen by Provider: 02/03/17 08:44 - HPI HPI: This is a 76-year-old -[place] male who presents to the emergency department by [facility] with complaint of a fall and forehead laceration. He has a past medical history of Parkinson's disease, dementia, hypertension, dysphasia, pulmonary embolism and repeated falls. The patient himself is currently confused, which may be his baseline, but is a poor historian. Unknown if he is up-to-date with his tetanus vaccination. ED Past Medical Hx - Past Medical History Previous Medical History?: Yes Hx Hypertension: Yes Hx Dementia: Yes Additional medical history: Parkinson's. high cholesterol - Surgical History Past Surgical History?: Yes Additional Surgical History: Abdominal - Social History Smoking Status: Former Smoker Substance Use Type: Prescribed - Medications Home Medications: Home Medications Medication Instructions Recorded Confirmed Last Taken Type Acetaminophen [Acetaminophen ER 650 mg PO Q6HR PRN 02/03/17 02/03/17 Unknown History TAB] Acetaminophen [Tylenol] 500 mg PO BID 02/03/17 02/03/17 Unknown History Aspirin EC [Aspirin Enteric Coated 81 mg PO QDAY 02/03/17 02/03/17 Unknown History TAB] Carbidopa/Levodopa [Rytary ER 3 each PO TID 02/03/17 02/03/17 Unknown History 61.25 mg-245 mg Cap] Carvedilol [Coreg] 3.125 mg PO BID 02/03/17 02/03/17 Unknown History Eyelid Cleanser Comb No.7 [Ocusoft 1 each TP QDAY 02/03/17 02/03/17 Unknown History Lid Scrub] Lisinopril [Zestril TAB] 10 mg PO QDAY 02/03/17 02/03/17 Unknown History Propylene Glycol [Systane Balance 1 - 2 drop OP PRN 02/03/17 02/03/17 Unknown History 0.4%] Rotigotine [Neupro] 1 each TD Q24H 02/03/17 02/03/17 Unknown History Sennosides/Docusate Sodium [Senna 1 each PO QHS 02/03/17 02/03/17 Unknown History Laxative Tablet] Warfarin Sodium [Coumadin] 3 mg PO QHS 12/29/17 12/29/17 Unknown History traMADol [Ultram] 50 mg PO Q8HR PRN 02/03/17 02/03/17 Unknown History ED Review of Systems ROS: Stated complaint: FALL,LACERATION Other details as noted in HPI Comment: Unobtainable due to pts medical conditions Physical Exam - Physical Exam Vital Signs: Vital Signs 02/03/17 02/03/17 08:39 08:52 Temperature 98.3 F 98.3 F Pulse Rate 76 76 Respiratory 15 15 Rate Blood Pressure 195/102 Blood Pressure 195/102 [Left] O2 Sat by Pulse 100 100 Oximetry Physical Exam: GENERAL: The patient is well-developed well-nourished. HENT: Normocephalic. Atraumatic. Patient has moist mucous membranes. EYES: Extraocular motions are intact. Pupils equal reactive to light bilaterally. NECK: Supple. Trachea is midline. CHEST/LUNGS: Clear to auscultation. There is no respiratory distress noted. HEART/CARDIOVASCULAR: Regular. There is no tachycardia. There is no murmur. ABDOMEN: Abdomen is soft, nontender. Patient has normal bowel sounds. There is no abdominal distention. SKIN: Skin is warm and dry. There is a 2 cm laceration to the right forehead with some mild venous oozing. NEURO: The patient is awake but confused. Withdraws from painful stimuli. MUSCULOSKELETAL: There is no tenderness or deformity. There is no evidence of acute injury. ED Course Vital Signs 02/03/17 02/03/17 08:39 08:52 Temperature 98.3 F 98.3 F Pulse Rate 76 76 Respiratory 15 15 Rate Blood Pressure 195/102 Blood Pressure 195/102 [Left] O2 Sat by Pulse 100 100 Oximetry - Laceration /Wound Repair Right Face Wound Location: face (Right forehead) Wound's Depth, Shape: superficial, linear Wound Explored: clean Anesthesia: 1% Lidocaine Volume Anesthetic (ccs): 2 Wound Repaired With: sutures Suture Size/Type: 5:0, proline Number of Sutures: 5 Layer Closure?: No Sterile Dressing Applied?: Yes ED Medical Decision Making - Lab Data Result diagrams: 02/03/17 09:13 02/03/17 09:13 - EKG Data -: EKG Interpreted by Me EKG shows normal: sinus rhythm, axis, intervals, QRS complexes (left axis deviation), ST-T waves Rate: normal - EKG Data When compared to previous EKG there are: previous EKG unavailable Interpretation: normal EKG (with left axis deviation) - Radiology Data Radiology results: report reviewed, image reviewed interpreted by me: Chest x-ray does not show any acute process. There are no pleural effusions, obvious pneumonia and there is no pneumothorax. X-ray of the pelvis shows significant degenerative changes and arthritis but otherwise no fracture, dislocation or acute process. CT HEAD WITHOUT CONTRAST: HISTORY: Trauma, head injury. TECHNIQUE: Sequential 2.5mm CT images. COMPARISON: 08/05/16. FINDINGS: Cerebral Parenchyma: Within normal limits. Cerebellum: Within normal limits for this patient's age. Mild chronic white matter changes are noted. Brainstem: Within normal limits. Ventricles: Normal. Sella: Normal. Extra-axial spaces: Normal. Basal Cisterns: Normal. Intracranial Hemorrhage: None. Midline Shift: None. Calvarium: Normal. Small right frontal soft tissue hematoma is noted. Sinuses: Normal. Mastoid Air Cells: Normal. Visualized Orbits: Normal. IMPRESSION: Right frontal soft tissue swelling. No acute intracranial process. Transcribed By: TTR Dictated By: MARGARET STORY JR, MD Electronically Authenticated By: MARGARET STORY JR, MD Signed Date/Time: 02/03/[address] SCAN OF THE CERVICAL SPINE: HISTORY: Trauma, neck injury. TECHNIQUE: Contiguous 1.25 mm axial images of the cervical spine were obtained. Sagittal and coronal reformatted images. FINDINGS: Anterior and posterior stabilization hardware from the level of C3-C7 generates artifact. There is normal height and alignment of the cervical vertebral bodies. No evidence for fracture or malalignment. There is moderate multilevel spondylosis. The paraspinal soft tissues are within normal limits. IMPRESSION: Anterior and posterior cervical fusion changes. Spondylosis. No acute injury is appreciated. Transcribed By: TTR Dictated By: MARGARET STORY JR, MD Electronically Authenticated By: MARGARET STORY JR, MD Signed Date/Time: 02/03/17 0918 - Medical Decision Making Patient presents after a fall causing a right forehead laceration. History of recurrent falls. He appears to be at his baseline mental status which is mostly nonverbal, spontaneous movement of his extremities but confused and not following any commands. CT of the head does not show any bleed, shift, mass or any acute process. CT of the cervical spine also does not show any acute process. X-ray of the chest and pelvis were done that did not show any fractures, dislocation or any acute processes. Labs are mostly unremarkable. Laceration was repaired. Vital signs stable except for he had some elevated blood pressure. He was given 1 dose of hydralazine and came down to a more reasonable level. He appears safe for discharge back to his [facility]. He will return to the ER with any worsening of symptoms or any acute distress. - Differential Diagnosis laceration, contusion, brain bleed, fracture Critical Care Time: No Critical care attestation.: If time is entered above; I have spent that time in minutes in the direct care of this critically ill patient, excluding procedure time. ED Disposition Clinical Impression: Subtherapeutic international normalized ratio (INR) Fall Qualifiers: Encounter type: initial encounter Qualified Code(s): W19.XXXA - Unspecified fall, initial encounter Forehead laceration Qualifiers: Encounter type: initial encounter Qualified Code(s): S01.81XA - Laceration without foreign body of other part of head, initial encounter Head injury Qualifiers: Encounter type: initial encounter Qualified Code(s): S09.90XA - Unspecified injury of head, initial encounter Hypertension Qualifiers: Hypertension type: essential hypertension Qualified Code(s): I10 - Essential ( primary) hypertension Disposition: - TO HOME OR SELFCARE Is pt being admited?: No Condition: Stable Instructions: Suture Care (ED), Laceration (ED), Fall Prevention for Older Adults (ED), Minor Head Injury (ED), Hypertension (ED) Additional Instructions: Please follow up with the primary care doctor as soon as possible regarding his recurrent falls. The patient was found to be subtherapeutic on Coumadin/ warfarin. If the patient is still taking this medication, that he also needs to see the primary care doctor regarding titration of the medication. The sutures will need to be removed in 7 days but he should be seen sooner with any signs or symptoms of infection or continued bleeding. Please have the patient returned to the emergency Department with any worsening of his symptoms or any acute distress. Referrals: SAMSON SANTIZO MD [Staff Physician] - 3-5 Days Time of Disposition: 11:14
--- NOTE | 2017-02-03 09:22 | Cat Scan Report ---
CT HEAD WITHOUT CONTRAST: HISTORY: Trauma, head injury. TECHNIQUE: Sequential 2.5mm CT images. COMPARISON: 08/05/16. FINDINGS: Cerebral Parenchyma: Within normal limits. Cerebellum: Within normal limits for this patient's age. Mild chronic white matter changes are noted. Brainstem: Within normal limits. Ventricles: Normal. Sella: Normal. Extra-axial spaces: Normal. Basal Cisterns: Normal. Intracranial Hemorrhage: None. Midline Shift: None. Calvarium: Normal. Small right frontal soft tissue hematoma is noted. Sinuses: Normal. Mastoid Air Cells: Normal. Visualized Orbits: Normal. IMPRESSION: Right frontal soft tissue swelling. No acute intracranial process.
--- NOTE | 2017-02-03 09:23 | Cat Scan Report ---
CT SCAN OF THE CERVICAL SPINE: HISTORY: Trauma, neck injury. TECHNIQUE: Contiguous 1.25 mm axial images of the cervical spine were obtained. Sagittal and coronal reformatted images. FINDINGS: Anterior and posterior stabilization hardware from the level of C3-C7 generates artifact. There is normal height and alignment of the cervical vertebral bodies. No evidence for fracture or malalignment. There is moderate multilevel spondylosis. The paraspinal soft tissues are within normal limits. IMPRESSION: Anterior and posterior cervical fusion changes. Spondylosis. No acute injury is appreciated.
[2017-02-03 09:52] LABS: Hematocrit 41.4 % (35.5-45.6); Hemoglobin 13.3 gm/dl (11.8-15.2); Mean Corpuscular HGB Conc 32 % (32-34); Mean Corpuscular Hemoglobin 28 pg (28-32); Mean Corpuscular Volume 87 fl (84-94); Platelet Count 240 K/mm3 (140-440); Red Blood Count 4.77 M/mm3 (3.65-5.03); Red Cell Distribution Width 15.2 % (13.2-15.2)
[2017-02-03 09:55] LABS: INR 1.06 (0.87-1.13)
[2017-02-03 09:56] LABS: Partial Thromboplastin Time 32.3 Sec. (24.2-36.6)
[2017-02-03] MEDS ORDERED: XYLOCAINE 1% MPF 5 mL INFILTRATI ONE (10:04)
[2017-02-03 10:18] LABS: BUN/Creatinine Ratio 18; Blood Urea Nitrogen 14 mg/dL (9-20); Calcium 8.8 mg/dL (8.4-10.2); Hemolysis Index 19
--- NOTE | 2017-02-03 10:51 | XRay Report ---
AP PELVIS: HISTORY: Trauma, pain. AP view of the pelvis shows normal pelvic contour and soft tissues. The hips are symmetric and within normal limits as are the sacroiliac joints. IMPRESSION: No acute injury appreciated.
--- NOTE | 2017-02-03 10:51 | XRay Report ---
AP CHEST: HISTORY: Trauma, pain AP view of the chest demonstrates a normal mediastinal and cardiac contour with clear lungs and normal bony and soft tissue structures. IMPRESSION: Unremarkable AP chest.
[2017-02-03] MEDS ORDERED: D50W (25GM) Syringe IV ONE (11:12)
[2017-02-03] MEDS ORDERED: APRESOLINE IV ONE (13:20)
[2017-02-03 16:22] VITALS: BP 160/84
== END 2017-02-03 16:10 | disposition home or self-care (01) ==
LOC: EEVIPCON 08:02 → ED 08:02
DX: S01.81XA Laceration without foreign body of other part of head, initial encounter (principal); I10 Essential (primary) hypertension; F03.90 Unspecified dementia, unspecified severity, without behavioral disturbance, psychotic disturbance, mood disturbance, and anxiety; E78.00 Pure hypercholesterolemia, unspecified; Z87.891 Personal history of nicotine dependence; G20 Parkinson's disease
CPT/HCPCS: 12011; 36415; 70450; 71010; 72125; 72170; 80048; 82550; 84484; 85025; 85610; 85730; 90471; 90715; 93005; 93010; 96374; 96375; 99285; J0360

== ENCOUNTER 2017-06-02 08:01 | Outpatient (CLI) | payer MEDICARE ==
[2017-06-02 09:48] LABS: Blood Urea Nitrogen 13 mg/dL (9-20)
--- NOTE | 2017-06-02 10:20 | Cat Scan Report ---
CTA chest: History: PE. Next Findings: No evidence of aortic aneurysm or pulmonary embolism. Suspected thickening of the wall of the esophagus. No consolidation, pneumothorax or pleural effusion. Impression: No evidence of pulmonary embolism. Suspected thickening of the wall of the esophagus. Incidentally noted hypodensities in the liver probably cysts. Also noted cysts left kidney.
== END 2017-06-02 08:02 | disposition home or self-care (01) ==
LOC: CT 08:01
PROVIDERS: ATTEND Internal Medicine
DX: N28.1 Cyst of kidney, acquired (principal); G20 Parkinson's disease; M62.81 Muscle weakness (generalized); M62.82 Rhabdomyolysis; F02.80 Dementia in other diseases classified elsewhere, unspecified severity, without behavioral disturbance, psychotic disturbance, mood disturbance, and anxiety; R41.841 Cognitive communication deficit; R13.12 Dysphagia, oropharyngeal phase; R48.9 Unspecified symbolic dysfunctions; R26.89 Other abnormalities of gait and mobility; R29.6 Repeated falls; R55 Syncope and collapse; Z86.711 Personal history of pulmonary embolism
CPT/HCPCS: 36415; 71275; 82565; 84520; Q9967

== ENCOUNTER 2018-07-31 11:32 | Emergency (ER) | payer MEDICARE ==
--- NOTE | 2018-07-31 14:48 | Emergency Department Report ---
ED General Adult HPI - General Chief complaint: Fall Stated complaint: FALL/HIT HEAD/(R) EYE Time Seen by Provider: 07/31/18 14:23 Source: patient, EMS (ems notes not available at time of chart dictation), RN notes reviewed, old records reviewed Mode of arrival: Stretcher Limitations: Other (patient has dementia and is a poor historian) - History of Present Illness Initial comments: Primary care Dr.: Dr. Haja Mathew Past medical history: Repeated falls, Parkinson's disease, dementia, hypertension, history of pulmonary embolism As per review of old medications, patient is not on systemic anticoagulation, and is taking aspirin. Patient sent to the emergency room today from a local long term for reported mechanical fall. Patient reportedly fell out of a wheelchair. The patient endorses this to myself and the nurse who triaged him. He denies physical pain. He denies other complaints. He is found to have sutures placed on the foreh ead. It is not known when they were placed and widely replaced. They appear to be somewhat fresh. He is not sure if he's had a tetanus vaccination recently. The patient denies headache, neck pain, chest pain, facial pain, abdominal pain. He denies extremity weakness. He denies urinary symptoms. -: Sudden Location: face Severity scale (0 -10): 0 Quality: other Consistency: other Improves with: other Worsens with: other - Related Data Home Medications Medication Instructions Recorded Confirmed Last Taken Acetaminophen [Acetaminophen ER 650 mg PO Q6HR PRN 02/03/17 02/03/17 Unknown TAB] Acetaminophen [Tylenol] 500 mg PO BID 02/03/17 02/03/17 Unknown Aspirin EC [Aspirin Enteric Coated 81 mg PO QDAY 02/03/17 02/03/17 Unknown TAB] Carbidopa/Levodopa [Rytary ER 3 each PO TID 02/03/17 02/03/17 Unknown 61.25 mg-245 mg Cap] Carvedilol [Coreg] 3.125 mg PO BID 02/03/17 02/03/17 Unknown Eyelid Cleanser Comb No.7 [Ocusoft 1 each TP QDAY 02/03/17 02/03/17 Unknown Lid Scrub] Lisinopril [Zestril TAB] 10 mg PO QDAY 02/03/17 02/03/17 Unknown Propylene Glycol [Systane Balance 1 - 2 drop OP PRN 02/03/17 02/03/17 Unknown 0.4%] Rotigotine [Neupro] 1 each TD Q24H 02/03/17 02/03/17 Unknown Sennosides/Docusate Sodium [Senna 1 each PO QHS 02/03/17 02/03/17 Unknown Laxative Tablet] Warfarin Sodium [Coumadin] 3 mg PO QHS 02/03/17 02/03/17 Unknown traMADol [Ultram] 50 mg PO Q8HR PRN 02/03/17 02/03/17 Unknown Allergies Allergy/AdvReac Type Severity Reaction Status Date / Time No Known Allergies Allergy Unverified 02/26/16 13:03 ED Review of Systems ROS: Stated complaint: FALL/HIT HEAD/(R) EYE Other details as noted in HPI Constitutional: denies: fever Eyes: denies: eye pain ENT: denies: throat pain, dental pain, epistaxis Respiratory: denies: cough Cardiovascular: denies: chest pain Gastrointestinal: denies: abdominal pain Genitourinary: denies: dysuria Musculoskeletal: denies: back pain Neurological: denies: headache ED Past Medical Hx - Past Medical History Previous Medical History?: Yes Hx Hypertension: Yes Hx Dementia: Yes Additional medical history: Parkinson's. high cholesterol. Falls - Surgical History Additional Surgical History: Abdominal - Social History Smoking Status: Former Smoker Substance Use Type: None - Medications Home Medications: Home Medications Medication Instructions Recorded Confirmed Last Taken Type Acetaminophen [Acetaminophen ER 650 mg PO Q6HR PRN 02/03/17 02/03/17 Unknown History TAB] Acetaminophen [Tylenol] 500 mg PO BID 02/03/17 02/03/17 Unknown History Aspirin EC [Aspirin Enteric Coated 81 mg PO QDAY 02/03/17 02/03/17 Unknown History TAB] Carbidopa/Levodopa [Rytary ER 3 each PO TID 02/03/17 02/03/17 Unknown History 61.25 mg-245 mg Cap] Carvedilol [Coreg] 3.125 mg PO BID 02/03/17 02/03/17 Unknown History Eyelid Cleanser Comb No.7 [Ocusoft 1 each TP QDAY 02/03/17 02/03/17 Unknown History Lid Scrub] Lisinopril [Zestril TAB] 10 mg PO QDAY 02/03/17 02/03/17 Unknown History Propylene Glycol [Systane Balance 1 - 2 drop OP PRN 02/03/17 02/03/17 Unknown History 0.4%] Rotigotine [Neupro] 1 each TD Q24H 02/03/17 02/03/17 Unknown History Sennosides/Docusate Sodium [Senna 1 each PO QHS 02/03/17 02/03/17 Unknown History Laxative Tablet] Warfarin Sodium [Coumadin] 3 mg PO QHS 02/03/17 02/03/17 Unknown History traMADol [Ultram] 50 mg PO Q8HR PRN 02/03/17 02/03/17 Unknown History ED Physical Exam - General Limitations: Other (patient is demented. Patient is a poor historian.) General appearance: alert, in no apparent distress - Head Head exam: Present: normocephalic, other (there is a right paramedian forehead abrasion noted. Laceration sites as noted, with dried blood, with interrupted stitches.) - Eye Eye exam: Present: normal appearance (bilateral arcus senilis noted), PERRL, EOMI, other (visual acuity intact to finger counting, color perception, reading at a close distance). Absent: nystagmus - ENT ENT exam: Present: normal orophraynx (is no nasal septal hematoma.), mucous membranes moist, TM's normal bilaterally (there is no nasal hematoma. There is no hemotympanum.). Absent: normal exam (nasal ecchymosis and abrasions noted.) - Neck Neck exam: Present: normal inspection, full ROM. Absent: tenderness, meningismus - Respiratory Respiratory exam: Present: normal lung sounds bilaterally. Absent: respiratory distress - Cardiovascular Cardiovascular Exam: Present: normal rhythm, bradycardia, normal heart sounds. Absent: tachycardia, irregular rhythm, systolic murmur, diastolic murmur, rubs, gallop - GI/Abdominal GI/Abdominal exam: Present: soft. Absent: distended, tenderness, guarding, rebound, rigid, pulsatile mass - Rectal Rectal exam: Present: deferred - Extremities Exam Extremities exam: Present: normal inspection, full ROM, pedal edema, other (2+ pulses noted in the bilateral upper, lower extremities. Compartments soft. No long bony tenderness. The pelvis is stable.). Absent: calf tenderness - Back Exam Back exam: Present: normal inspection, full ROM. Absent: tenderness, CVA tenderness (R), CVA tenderness (L), paraspinal tenderness, vertebral tenderness - Neurological Exam Neurological exam: Present: alert, other (Extraocular movements intact. Tongue midline. No facial droop. Facial sensation intact to light touch in the V1, V2, V3 distribution bilaterally. 5 and 5 strength in 4 extremities.. Sensation is intact to light touch in 4 extremities.) - Psychiatric Psychiatric exam: Present: normal affect, normal mood - Skin Skin exam: Present: warm, abrasion, ecchymosis ED Course Vital Signs 07/31/18 14:30 Temperature 97.6 F Pulse Rate 62 Respiratory 12 Rate Blood Pressure 144/89 [Left] O2 Sat by Pulse 96 Oximetry - Reevaluation(s) Reevaluation #1: 07/31/18 14:47 Differential diagnosis, including but not limited to: Facial contusion, soft tissue injury, fracture, intracranial injury, subacute laceration Assessment and plan: 78-year-old gentleman with a reported mechanical fall. Patient is afebrile with reassuring vital signs with an unremarkable physical exam. He denies complaints. He has no pain at this time. He is not sure about his tetanus vaccination status. He will be given a tetanus vaccination, if required. CT scan of the brain, facial bones, cervical spine ordered. Reevaluation #2: 07/31/18 16:06 Vital signs remained stable. Patient in no acute distress. CT scan of the brain, facial bones and cervical spine demonstrate no significant injury or disease that would require further evaluation or transfer at this time. Patient does not appear to have an emergent medical condition at this time. He may be discharged back to his long term, and the sutures can be taken out in 5 days after they were placed. ED Medical Decision Making - Lab Data Vital Signs 07/31/18 14:30 Temperature 97.6 F Pulse Rate 62 Respiratory 12 Rate Blood Pressure 144/89 [Left] O2 Sat by Pulse 96 Oximetry - Radiology Data Radiology results: report reviewed, image reviewed Print Report Referring Physician: DUNG MASTERSON Patient Name: LOWELL STEPHENS Date of : 1940 Sex: Male Report Date: 2018-07-31 Report Status: Finalized Findings [facility] [address] [place] [address] Cat Scan Report Signed Patient: LOWELL STEPHENS MR#: [id number] : 1940 Acct:[id number] Age/Sex: 78 / M ADM Date: 07/31/18 Loc: ED Attending Dr: Ordering Physician: DUNG MASTERSON MD Date of Service: 07/31/18 Procedure(s): CT head/brain wo con Accession Number(s): [id number] cc: DUNG MASTERSON MD CT HEAD WITHOUT CONTRAST: HISTORY: Fall, head trauma. TECHNIQUE: Sequential CT images without contrast. FINDINGS: Images obtained show bilateral prominence of the sulci and ventricles. There are no abnormal intra- or extra-axial blood or fluid collections. There are no focal masses or evidence of mass effect. The carter white matter differentiation appears within normal limits. Regions of periventricular decreased attenuation are consistent with microangiopathic ischemic disease. Chronic lacunar infarcts are identified in both thalami. The posterior fossa structures including the fourth ventricle, cerebellum, and brainstem appear normal. IMPRESSION: Evidence of atrophy and microangiopathic ischemic disease. Chronic lacunar infarcts in both thalami. No acute intracranial process noted. Transcribed By: TTR Dictated By: MARGARET STORY JR, MD Electronically Authenticated By: MARGARET STORY JR, MD Signed Date/Time: 07/31/18 1503 Print Report Referring Physician: DUNG MASTERSON Patient Name: LOWELL STEPHENS Date of : 1940 Sex: Male Report Date: 2018-07-31 Report Status: Finalized Findings [facility] [address] [place] [address] Cat Scan Report Signed Patient: LOWELL STEPHENS MR#: [id number] : 1940 Acct:[id number] Age/Sex: 78 / M ADM Date: 07/31/18 Loc: ED Attending Dr: Ordering Physician: DUNG MASTERSON MD Date of Service: 07/31/18 Procedure(s): CT cervical spine wo con Accession Number(s): [id number] cc: DUNG MASTERSON MD CT SCAN OF THE CERVICAL SPINE: HISTORY: Fall, head trauma. TECHNIQUE: Contiguous 1.25 mm axial images of the cervical spine were obtained. Sagittal and coronal reformatted images. FINDINGS: There is been previous anterior and posterior fusion fusion with disc spacer placement from C3-7. There is normal height and alignment of the cervical vertebral bodies. The posterior elements are in appropriate relationship. No evidence for displaced fracture or bone lesion. Moderate uncovertebral and posterior spurring is noted throughout the cervical spine. The prevertebral soft tissues are unremarkable. IMPRESSION: Anterior and posterior fusion from C3-7. Multilevel cervical spondylosis. No acute injury is identified. Transcribed By: TTR Dictated By: MARGARET STORY JR, MD Electronically Authenticated By: MARGARET STORY JR, MD Signed Date/Time: 07/31/18 1519 Print Report Referring Physician: DUNG MASTERSON Patient Name: LOWELL STEPHENS Date of : 1940 Sex: Male Report Date: 2018-07-31 Report Status: Finalized Findings [facility] [address] [place] [address] Cat Scan Report Signed Patient: LOWELL STEPHENS MR#: [id number] : 1940 Acct:[id number] Age/Sex: 78 / M ADM Date: 07/31/18 Loc: ED Attending Dr: Ordering Physician: DUNG MASTERSON MD Date of Service: 07/31/18 Procedure(s): CT facial bones wo con Accession Number(s): [id number] cc: DUNG MASTERSON MD CT FACIAL BONES WITHOUT CONTRAST: HISTORY: Fall, head trauma. TECHNIQUE: Helical CT images with sagittal and coronal CT reformations. FINDINGS: All paranasal sinuses are clear. No sinus wall fracture, fluid level or opacification. The orbital cavities are symmetric and intact. The mandible is intact. The skull base and upper cervical spine demonstrate no evidence for acute injury. Mild frontal soft tissue swelling is suspected. Poor dentition is noted. IMPRESSION: No evidence for acute injury to the facial bones. Mild frontal soft tissue swelling. Transcribed By: TTR Dictated By: MARGARET STORY JR, MD Electronically Authenticated By: MARGARET STORY JR, MD Signed Date/Time: 07/31/18 1505 DD/ 1504 TD/TT: 07/31/18 1505 Critical care attestation.: If time is entered above; I have spent that time in minutes in the direct care of this critically ill patient, excluding procedure time. ED Disposition Clinical Impression: Fall Qualifiers: Encounter type: initial encounter Qualified Code(s): W19.XXXA - Unspecified fall, initial encounter Contusion of face Qualifiers: Encounter type: initial encounter Qualified Code(s): S00.83XA - Contusion of other part of head, initial encounter Disposition: DC/TX-70 ANOTHER TYPE HLTHCARE Is pt being admited?: No Does the pt Need Aspirin: No Condition: Stable Additional Instructions: Continue outpatient medications. Facial stitches should be removed in 5 days after they were placed. Follow up with the primary care doctor within the next month. Patient may have ice packs applied as needed to the face. Please return to the emergency room right away with new, worse or different symptoms not present on the initial emergency evaluation. Referrals: NICOLE TOSCANO MD [Primary Care Provider] - 3-5 Days Time of Disposition: 16:07 (back to long term)
--- NOTE | 2018-07-31 15:08 | Cat Scan Report ---
CT HEAD WITHOUT CONTRAST: HISTORY: Fall, head trauma. TECHNIQUE: Sequential CT images without contrast. FINDINGS: Images obtained show bilateral prominence of the sulci and ventricles. There are no abnormal intra- or extra-axial blood or fluid collections. There are no focal masses or evidence of mass effect. The carter white matter differentiation appears within normal limits. Regions of periventricular decreased attenuation are consistent with microangiopathic ischemic disease. Chronic lacunar infarcts are identified in both thalami. The posterior fossa structures including the fourth ventricle, cerebellum, and brainstem appear normal. IMPRESSION: Evidence of atrophy and microangiopathic ischemic disease. Chronic lacunar infarcts in both thalami. No acute intracranial process noted.
--- NOTE | 2018-07-31 15:10 | Cat Scan Report ---
CT FACIAL BONES WITHOUT CONTRAST: HISTORY: Fall, head trauma. TECHNIQUE: Helical CT images with sagittal and coronal CT reformations. FINDINGS: All paranasal sinuses are clear. No sinus wall fracture, fluid level or opacification. The orbital cavities are symmetric and intact. The mandible is intact. The skull base and upper cervical spine demonstrate no evidence for acute injury. Mild frontal soft tissue swelling is suspected. Poor dentition is noted. IMPRESSION: No evidence for acute injury to the facial bones. Mild frontal soft tissue swelling.
--- NOTE | 2018-07-31 15:24 | Cat Scan Report ---
CT SCAN OF THE CERVICAL SPINE: HISTORY: Fall, head trauma. TECHNIQUE: Contiguous 1.25 mm axial images of the cervical spine were obtained. Sagittal and coronal reformatted images. FINDINGS: There is been previous anterior and posterior fusion fusion with disc spacer placement from C3-7. There is normal height and alignment of the cervical vertebral bodies. The posterior elements are in appropriate relationship. No evidence for displaced fracture or bone lesion. Moderate uncovertebral and posterior spurring is noted throughout the cervical spine. The prevertebral soft tissues are unremarkable. IMPRESSION: Anterior and posterior fusion from C3-7. Multilevel cervical spondylosis. No acute injury is identified.
[2018-07-31 16:52] VITALS: BP 171/76
== END 2018-07-31 16:52 | disposition other institution (70) ==
LOC: ED 11:32
DX: S00.83XA Contusion of other part of head, initial encounter (principal); G20 Parkinson's disease; I10 Essential (primary) hypertension; F03.90 Unspecified dementia, unspecified severity, without behavioral disturbance, psychotic disturbance, mood disturbance, and anxiety; E78.00 Pure hypercholesterolemia, unspecified; Z79.82 Long term (current) use of aspirin; Z86.711 Personal history of pulmonary embolism; Z79.899 Other long term (current) drug therapy; Z87.891 Personal history of nicotine dependence; W05.0XXA Fall from non-moving wheelchair, initial encounter; Y93.89 Activity, other specified; Y92.128 Other place in nursing home as the place of occurrence of the external cause; Y99.8 Other external cause status
CPT/HCPCS: 70450; 70486; 72125; 99284; 99285

== ENCOUNTER 2019-03-15 21:23 | Emergency (ER) | payer MEDICARE ==
[2019-03-15] MEDS ORDERED: LIDOCAINE (1%) 10 MG/1 ML VIAL 20 ML MDV INFILTRATI ONE (22:26)
--- NOTE | 2019-03-15 22:30 | Emergency Department Report ---
ED General Adult HPI - General Chief complaint: Laceration/Recheck/Suture Stated complaint: FALL/LAC TO RT EYE Time Seen by Provider: 03/15/19 22:13 Source: patient, EMS Mode of arrival: Stretcher Limitations: Altered Mental Status - History of Present Illness Initial comments: Patient is a 78-year-old male that presents emergency room with complaints of fall. [facility] a [facility]. As per report from the rash on the patient fell from a ground level out of his wheelchair and sustained a laceration above his right eye. Oriented to report there is no loss of consciousness. However the patient does have a history of dementia and has confusion. Patient's baseline mental status is unknown. Paperwork from [facility]ci were reviewed: Patient is currently living at [facility]. Patient's primary care is Dr. Mathew. Patient has a history of neuropathy, hypertension, weakness, dementia, Parkinson's, dysphasia, hyperlipidemia, PE. -: Sudden Location: head, face Severity scale (0 -10): 0 Consistency: constant Improves with: none Worsens with: none Associated Symptoms: confusion Treatments Prior to Arrival: none - Related Data Home Medications Medication Instructions Recorded Confirmed Last Taken Acetaminophen [Acetaminophen ER 650 mg PO Q6HR PRN 02/03/17 02/03/17 Unknown TAB] Acetaminophen [Tylenol] 500 mg PO BID 02/03/17 02/03/17 Unknown Aspirin EC [Aspirin Enteric Coated 81 mg PO QDAY 02/03/17 02/03/17 Unknown TAB] Carbidopa/Levodopa [Rytary ER 3 each PO TID 02/03/17 02/03/17 Unknown 61.25 mg-245 mg Cap] Eyelid Cleanser Comb No.7 [Ocusoft 1 each TP QDAY 02/03/17 02/03/17 Unknown Lid Scrub] Propylene Glycol [Systane Balance 1 - 2 drop OP PRN 02/03/17 02/03/17 Unknown 0.4%] Rotigotine [Neupro] 1 each TD Q24H 02/03/17 02/03/17 Unknown Sennosides/Docusate Sodium [Senna 1 each PO QHS 02/03/17 02/03/17 Unknown Laxative Tablet] Warfarin Sodium [Coumadin] 3 mg PO QHS 02/03/17 02/03/17 Unknown carvediloL [Coreg] 3.125 mg PO BID 02/03/17 02/03/17 Unknown lisinopriL [Zestril TAB] 10 mg PO QDAY 02/03/17 02/03/17 Unknown traMADoL [Ultram] 50 mg PO Q8HR PRN 02/03/17 02/03/17 Unknown Allergies Allergy/AdvReac Type Severity Reaction Status Date / Time No Known Allergies Allergy Unverified 02/26/16 13:03 ED Review of Systems ROS: Stated complaint: FALL/LAC TO RT EYE Other details as noted in HPI Comment: Unobtainable due to pts medical conditions ED Past Medical Hx - Past Medical History Previous Medical History?: Yes Hx Hypertension: Yes Hx Dementia: Yes Additional medical history: Parkinson's. high cholesterol. Falls - Surgical History Past Surgical History?: Yes Additional Surgical History: Abdominal - Social History Smoking Status: Former Smoker Substance Use Type: None - Medications Home Medications: Home Medications Medication Instructions Recorded Confirmed Last Taken Type Acetaminophen [Acetaminophen ER 650 mg PO Q6HR PRN 02/03/17 02/03/17 Unknown History TAB] Acetaminophen [Tylenol] 500 mg PO BID 02/03/17 02/03/17 Unknown History Aspirin EC [Aspirin Enteric Coated 81 mg PO QDAY 02/03/17 02/03/17 Unknown History TAB] Carbidopa/Levodopa [Rytary ER 3 each PO TID 02/03/17 02/03/17 Unknown History 61.25 mg-245 mg Cap] Eyelid Cleanser Comb No.7 [Ocusoft 1 each TP QDAY 02/03/17 02/03/17 Unknown History Lid Scrub] Propylene Glycol [Systane Balance 1 - 2 drop OP PRN 02/03/17 02/03/17 Unknown History 0.4%] Rotigotine [Neupro] 1 each TD Q24H 02/03/17 02/03/17 Unknown History Sennosides/Docusate Sodium [Senna 1 each PO QHS 02/03/17 02/03/17 Unknown History Laxative Tablet] Warfarin Sodium [Coumadin] 3 mg PO QHS 02/03/17 02/03/17 Unknown History carvediloL [Coreg] 3.125 mg PO BID 02/03/17 02/03/17 Unknown History lisinopriL [Zestril TAB] 10 mg PO QDAY 02/03/17 02/03/17 Unknown History traMADoL [Ultram] 50 mg PO Q8HR PRN 02/03/17 02/03/17 Unknown History ED Physical Exam - General Limitations: Altered Mental Status General appearance: alert, in no apparent distress - Head Head exam: Present: atraumatic, normocephalic - Eye Eye exam: Present: normal appearance, PERRL Pupils: Present: normal accommodation - ENT ENT exam: Present: mucous membranes moist - Neck Neck exam: Present: normal inspection - Respiratory Respiratory exam: Present: normal lung sounds bilaterally. Absent: respiratory distress, wheezes, rales - Cardiovascular Cardiovascular Exam: Present: regular rate, normal rhythm. Absent: systolic murmur, diastolic murmur, rubs, gallop - GI/Abdominal GI/Abdominal exam: Present: soft, normal bowel sounds. Absent: distended, tenderness, guarding - Rectal Rectal exam: Present: deferred - Extremities Exam Extremities exam: Present: normal inspection - Back Exam Back exam: Present: normal inspection - Neurological Exam Neurological exam: Present: alert, altered - Skin Skin exam: Present: warm, dry, normal color, other (4 cm laceration to the right forehead). Absent: rash ED Course Vital Signs 03/15/19 03/15/19 03/15/19 21:37 21:42 21:46 Pulse Rate 54 L 62 54 L Respiratory 14 17 15 Rate Blood Pressure Blood Pressure 170/66 [left arm] O2 Sat by Pulse 96 100 99 Oximetry 03/15/19 03/15/19 03/15/19 22:00 22:16 22:31 Pulse Rate 47 L 49 L 45 L Respiratory 14 11 L 15 Rate Blood Pressure 170/66 177/72 Blood Pressure [left arm] O2 Sat by Pulse 100 100 99 Oximetry 03/15/19 03/15/19 03/15/19 22:45 23:02 23:15 Pulse Rate 45 L 52 L 53 L Respiratory 13 13 Rate Blood Pressure 171/72 171/72 167/87 Blood Pressure [left arm] O2 Sat by Pulse 100 99 Oximetry 03/15/19 03/15/19 03/15/19 23:31 23:44 23:45 Pulse Rate 55 L 47 L 54 L Respiratory 14 16 11 L Rate Blood Pressure 178/75 178/75 179/76 Blood Pressure [left arm] O2 Sat by Pulse 97 98 100 Oximetry 03/16/19 03/16/19 03/16/19 00:13 00:15 00:31 Pulse Rate 46 L 48 L 49 L Respiratory 11 L 11 L 23 Rate Blood Pressure 171/72 160/77 172/143 Blood Pressure [left arm] O2 Sat by Pulse 97 97 98 Oximetry 03/16/19 03/16/19 03/16/19 00:45 01:01 01:15 Pulse Rate 51 L 50 L 48 L Respiratory 11 L 11 L 16 Rate Blood Pressure 154/132 172/143 178/67 Blood Pressure [left arm] O2 Sat by Pulse 99 99 98 Oximetry 03/16/19 01:31 Pulse Rate 49 L Respiratory 12 Rate Blood Pressure 147/68 Blood Pressure [left arm] O2 Sat by Pulse 97 Oximetry - Reevaluation(s) Reevaluation #1: CT of the head and face done and no acute findings. Patient sustained a laceration to his right eyebrow. Patient's laceration 4 cm. Laceration closed without complications. See procedure note. Patient is stable for discharge. Patient will be discharged back to [facility]. Patient's discharge instructions printed for the nursing staff at [facility]. 03/16/19 01:30 - Laceration /Wound Repair Right Head Wound Location: head, face Wound Length (cm): 4 Wound's Depth, Shape: linear Wound Explored: clean Anesthesia: 1% Lidocaine Volume Anesthetic (ccs): 5 Wound Repaired With: sutures Suture Size/Type: 4:0, nylon Layer Closure?: Yes Deep Layer Suture Size/Type: 4:0 Number Deep Layer Sutures: 2 Sterile Dressing Applied?: Yes Progress: Site was cleaned with chlorhexidine. Site was prepped and draped in a sterile fashion. 4 cm forehead laceration closed., 2, 4-0 absorbable placed for layer closure. Then 6 horizontal mattress sutures placed. Edges well approximated. ED Medical Decision Making - Radiology Data Radiology results: report reviewed CT MAXILLOFACIAL WITHOUT CONTRAST INDICATION: Facial trauma. Head injury. History of fall. TECHNIQUE: Noncontrast axial, coronal and sagittal CT imaging was performed through the ce. All CT scans at this location are performed using CT dose reduction for ALARA by means of automated exposure control. COMPARISON: CT face without contrast from 07/31/2018. FINDINGS: FACIAL BONES: No fracture or other significant abnormality. PARANASAL SINUSES: No significant abnormality. ORBITS: No significant abnormality. VISUALIZED INTRACRANIAL STRUCTURES: No significant abnormality. ADDITIONAL FINDINGS: None. IMPRESSION: No acute abnormality of the face. CT HEAD WITHOUT CONTRAST INDICATION : head injury. laceration. ams. TECHNIQUE: Axial, coronal and sagittal CT imaging was performed from the skull apex through the skull base without contrast. All CT scans at this location are performed using CT dose reduction for ALARA by means of automated exposure control. COMPARISON: CT head without contrast from 07/31/2018. FINDINGS: PARENCHYMA: No mass, midline shift, hemorrhage, extraaxial collection or acute territorial infarction. There is age-appropriate atrophy with probable chronic microvascular ischemic changes along the periventricular white matter. VENTRICLES: Enlarged secondary to atrophy. No acute abnormality. SOFT TISSUES: A laceration is noted along the superior/lateral aspect of the right orbit with associated edema. No additional significant abnormality. BONES: No acute osseous abnormality. SINUSES: Mild mucosal thickening is noted along the right maxillary sinus. The remaining sinuses are clear. The mastoid air cells are patent. ADDITIONAL FINDINGS: None. IMPRESSION: 1. No acute intracranial abnormality. 2. Right periorbital laceration/edema. 3. Additional findings as above. - Medical Decision Making Patient is a 78-year-old male presents emergency room for fall and head laceration. Patient had a facial CT and a head CT done which showed no acute fractures. Patient sustained a right forehead laceration. Patient's laceration was 4 cm and was closed without difficulty. Patient's tetanus is up-to-date. Patient tetanus was given January 2017. Patient is stable for discharge. Patient will be discharged back to [facility]. Patient will be sent with discharge instructions for the nursing staff to review. - Differential Diagnosis laceration. head injury. ams. dementia. fall Critical care attestation.: If time is entered above; I have spent that time in minutes in the direct care of this critically ill patient, excluding procedure time. ED Disposition Clinical Impression: Laceration Fall Qualifiers: Encounter type: initial encounter Qualified Code(s): W19.XXXA - Unspecified fall, initial encounter Head injury Qualifiers: Encounter type: initial encounter Qualified Code(s): S09.90XA - Unspecified injury of head, initial encounter Altered mental state Qualifiers: Altered mental status type: unspecified Qualified Code(s): R41.82 - Altered mental status, unspecified Forehead laceration Qualifiers: Encounter type: initial encounter Qualified Code(s): S01.81XA - Laceration without foreign body of other part of head, initial encounter Disposition: DC/TX-70 ANOTHER TYPE HLTHCARE Is pt being admited?: No Does the pt Need Aspirin: No Condition: Stable Instructions: Laceration (ED), Suture Care (ED) Additional Instructions: Patient to follow up with primary care in 2-3 days. Patient be discharged back to his [facility]. Patient to rest. Patient to keep site clean and dry. Patient to return to ER if condition worsens, changes or new symptoms arise. Patient to have sutures removed in 7-10 days. Patient's primary care At his f[facility] can remove the sutures. Patient take Tylenol or ibuprofen when necessary for pain. Referrals: SAMSON MATHEW MD [Staff Physician] - 2-3 Days Time of Disposition: 01:47
--- NOTE | 2019-03-15 23:28 | Cat Scan Report ---
CT HEAD WITHOUT CONTRAST INDICATION : head injury. laceration. ams. TECHNIQUE: Axial, coronal and sagittal CT imaging was performed from the skull apex through the skul l base without contrast. All CT scans at this location are performed using CT dose reduction for ALA RA by means of automated exposure control. COMPARISON: CT head without contrast from 07/31/2018. FINDINGS: PARENCHYMA: No mass, midline shift, hemorrhage, extraaxial collection or acute territorial infarctio n. There is age-appropriate atrophy with probable chronic microvascular ischemic changes along the p eriventricular white matter. VENTRICLES: Enlarged secondary to atrophy. No acute abnormality. SOFT TISSUES: A laceration is noted along the superior/lateral aspect of the right orbit with associ ated edema. No additional significant abnormality. BONES: No acute osseous abnormality. SINUSES: Mild mucosal thickening is noted along the right maxillary sinus. The remaining sinuses are clear. The mastoid air cells are patent. ADDITIONAL FINDINGS: None. IMPRESSION: 1. No acute intracranial abnormality. 2. Right periorbital laceration/edema. 3. Additional findings as above. Signer Name: Dino Alva MD Signed: 03/15/2019 11:23 PM Workstation Name: [id number]
--- NOTE | 2019-03-16 00:48 | Cat Scan Report ---
CT MAXILLOFACIAL WITHOUT CONTRAST INDICATION: Facial trauma. Head injury. History of fall. TECHNIQUE: Noncontrast axial, coronal and sagittal CT imaging was performed through the face. All CT [facility] are performed using CT dose reduction for ALARA by means of automated exposure control. COMPARISON: CT face without contrast from 07/31/2018. FINDINGS: FACIAL BONES: No fracture or other significant abnormality. PARANASAL SINUSES: No significant abnormality. ORBITS: No significant abnormality. VISUALIZED INTRACRANIAL STRUCTURES: No significant abnormality. ADDITIONAL FINDINGS: None. IMPRESSION: No acute abnormality of the face. Signer Name: Dino Alva MD Signed: 03/16/2019 12:44 AM Workstation Name: [email or web address]
[2019-03-16 03:18] VITALS: BP 172/87
== END 2019-03-16 03:19 | disposition other institution (70) ==
LOC: ED 21:23
DX: S01.81XA Laceration without foreign body of other part of head, initial encounter (principal); S09.90XA Unspecified injury of head, initial encounter; R41.82 Altered mental status, unspecified; I10 Essential (primary) hypertension; Z87.891 Personal history of nicotine dependence; Z98.890 Other specified postprocedural states; Z79.899 Other long term (current) drug therapy; W05.0XXA Fall from non-moving wheelchair, initial encounter; Y93.89 Activity, other specified; Y92.89 Other specified places as the place of occurrence of the external cause; Y99.8 Other external cause status
CPT/HCPCS: 70450; 70486

== ENCOUNTER 2019-03-19 17:11 | Emergency (ER) | payer MEDICARE ==
[2019-03-19] MEDS ORDERED: hydrALAZINE 20 MG/1 ML INJ IM ONE (18:36)
--- NOTE | 2019-03-19 19:41 | Cat Scan Report ---
CT head/brain wo con INDICATION: closed head injury. TECHNIQUE: All CT scans at this location are performed using the following dose modulation technique: Automated exposure control. CONTRAST: None. COMPARISON: CT brain 03/15/2019 FINDINGS: The ventricular system is appropriate in size and configuration without midline shift. Nega tive for mass, stroke or hemorrhage. Neurologic calcification is seen at the basal ganglia. Low density within the periventricular white matter is typical of chronic small vessel ischemic blanco e. Atrophy is age-appropriate. IMPRESSION: 1. Appropriate atrophy. 2. Chronic small vessel ischemic change. Signer Name: Lokesh Mak MD Signed: 03/19/2019 7:36 PM Workstation Name: [id number]
--- NOTE | 2019-03-19 19:46 | Cat Scan Report ---
CT facial bones wo con INDICATION: facial trauma. TECHNIQUE: All CT scans at this location are performed using the following dose modulation technique: Automated exposure control. CONTRAST: None. COMPARISON: Facial bones 03/15/2019 FINDINGS: Negative for new bony injury. Mild mucoperiosteal thickening remains at the maxillary sinus es. Negative for significant bony injury. IMPRESSION: Stable maxillofacial CT. Signer Name: Lokesh Mak MD Signed: 03/19/2019 7:42 PM Workstation Name: [id number]
--- NOTE | 2019-03-19 20:04 | Emergency Department Report ---
ED General Adult HPI - General Chief complaint: Fall Stated complaint: FELL/HIT HEAD Time Seen by Provider: 03/19/19 17:53 Source: EMS Mode of arrival: Stretcher Limitations: Other - History of Present Illness Initial comments: Patient is a 78-year-old F Japanese male with a past medical history of dementia who lives at [facility] suffered a fall. Patient suffered a fall and struck his head approximately 4 days ago and has stitches above the right eye. According to [facility] staff his head injury today was in a similar location. Patient states he has a slight headache but is unable to give any additional history besides the fact that he just keeps saying "I fell" Severity scale (0 -10): 0 - Related Data Home Medications Medication Instructions Recorded Confirmed Last Taken Acetaminophen [Acetaminophen ER 650 mg PO Q6HR PRN 02/03/17 02/03/17 Unknown TAB] Acetaminophen [Tylenol] 500 mg PO BID 02/03/17 02/03/17 Unknown Aspirin EC [Aspirin Enteric Coated 81 mg PO QDAY 02/03/17 02/03/17 Unknown TAB] Carbidopa/Levodopa [Rytary ER 3 each PO TID 02/03/17 02/03/17 Unknown 61.25 mg-245 mg Cap] Eyelid Cleanser Comb No.7 [Ocusoft 1 each TP QDAY 02/03/17 02/03/17 Unknown Lid Scrub] Propylene Glycol [Systane Balance 1 - 2 drop OP PRN 02/03/17 02/03/17 Unknown 0.4%] Rotigotine [Neupro] 1 each TD Q24H 02/03/17 02/03/17 Unknown Sennosides/Docusate Sodium [Senna 1 each PO QHS 02/03/17 02/03/17 Unknown Laxative Tablet] Warfarin Sodium [Coumadin] 3 mg PO QHS 02/03/17 02/03/17 Unknown carvediloL [Coreg] 3.125 mg PO BID 02/03/17 02/03/17 Unknown lisinopriL [Zestril TAB] 10 mg PO QDAY 02/03/17 02/03/17 Unknown traMADoL [Ultram] 50 mg PO Q8HR PRN 02/03/17 02/03/17 Unknown Allergies Allergy/AdvReac Type Severity Reaction Status Date / Time No Known Allergies Allergy Unverified 02/26/16 13:03 ED Review of Systems ROS: Stated complaint: FELL/HIT HEAD Other details as noted in HPI Comment: All other systems reviewed and negative ED Past Medical Hx - Past Medical History Previous Medical History?: Yes Hx Hypertension: Yes Hx Dementia: Yes Additional medical history: Parkinson's. high cholesterol. Falls - Surgical History Additional Surgical History: Abdominal - Social History Smoking Status: Never Smoker - Medications Home Medications: Home Medications Medication Instructions Recorded Confirmed Last Taken Type Acetaminophen [Acetaminophen ER 650 mg PO Q6HR PRN 02/03/17 02/03/17 Unknown History TAB] Acetaminophen [Tylenol] 500 mg PO BID 02/03/17 02/03/17 Unknown History Aspirin EC [Aspirin Enteric Coated 81 mg PO QDAY 02/03/17 02/03/17 Unknown History TAB] Carbidopa/Levodopa [Rytary ER 3 each PO TID 02/03/17 02/03/17 Unknown History 61.25 mg-245 mg Cap] Eyelid Cleanser Comb No.7 [Ocusoft 1 each TP QDAY 02/03/17 02/03/17 Unknown History Lid Scrub] Propylene Glycol [Systane Balance 1 - 2 drop OP PRN 02/03/17 02/03/17 Unknown History 0.4%] Rotigotine [Neupro] 1 each TD Q24H 02/03/17 02/03/17 Unknown History Sennosides/Docusate Sodium [Senna 1 each PO QHS 02/03/17 02/03/17 Unknown History Laxative Tablet] Warfarin Sodium [Coumadin] 3 mg PO QHS 02/03/17 02/03/17 Unknown History carvediloL [Coreg] 3.125 mg PO BID 02/03/17 02/03/17 Unknown History lisinopriL [Zestril TAB] 10 mg PO QDAY 02/03/17 02/03/17 Unknown History traMADoL [Ultram] 50 mg PO Q8HR PRN 02/03/17 02/03/17 Unknown History ED Physical Exam - General Limitations: Altered Mental Status, Other General appearance: alert, in no apparent distress - Head Head exam: Present: normocephalic. Absent: atraumatic (Patient with intact stitches in the wound above the right eyebrow. There is some mild edema around the right eye and some bruising to the right forehead.) - Eye Eye exam: Present: normal appearance - ENT ENT exam: Present: mucous membranes moist - Neck Neck exam: Present: normal inspection - Respiratory Respiratory exam: Present: normal lung sounds bilaterally. Absent: respiratory distress, wheezes, rales, rhonchi - Cardiovascular Cardiovascular Exam: Present: regular rate, normal rhythm. Absent: systolic murmur, diastolic murmur, rubs, gallop - GI/Abdominal GI/Abdominal exam: Present: soft, normal bowel sounds - Rectal Rectal exam: Present: deferred - Extremities Exam Extremities exam: Present: normal inspection - Back Exam Back exam: Present: normal inspection - Neurological Exam Neurological exam: Present: alert, oriented X3 - Psychiatric Psychiatric exam: Present: normal affect, normal mood - Skin Skin exam: Present: warm, dry, intact, normal color. Absent: rash ED Course Vital Signs 03/19/19 03/19/19 03/19/19 17:51 18:01 18:10 Pulse Rate 51 L 50 L Respiratory 12 12 Rate Blood Pressure 194/101 179/76 Blood Pressure 179/76 [Left] O2 Sat by Pulse 100 100 100 Oximetry 03/19/19 03/19/19 18:31 19:50 Pulse Rate 57 L 70 Respiratory 12 Rate Blood Pressure 206/97 175/89 Blood Pressure [Left] O2 Sat by Pulse 98 Oximetry ED Medical Decision Making - Radiology Data Ordering Physician: SADIA BALLESTEROS MD Date of Service: 03/19/19 Procedure(s): CT facial bones wo con Accession Number(s): [id number] cc: SADIA BALLESTEROS MD CT facial bones wo con INDICATION: facial trauma. TECHNIQUE: All CT scans at this location are performed using the following dose modulation technique: Automated exposure control. CONTRAST: None. COMPARISON: Facial bones 03/15/2019 FINDINGS: Negative for new bony injury. Mild mucoperiosteal thickening remains at the maxillary sinuses. Negative for significant bony injury. IMPRESSION: Stable maxillofacial CT. Signer Name: Lokesh Mak MD Signed: 03/19/2019 7:42 PM Workstation Name: [id number] Transcribed By: ES Dictated By: Lokesh Mak MD Electronically Authenticated By: Lokesh Mak MD Signed Date/Time: 03/19/191941 Ordering Physician: SADIA BALLESTEROS MD Date of Service: 03/19/19 Procedure(s): CT head/brain wo con Accession Number(s): [id number] cc: SADIA BALLESTEROS MD CT head/brain wo con INDICATION: closed head injury. TECHNIQUE: All CT scans at this location are performed using the following dose modulation technique: Automated exposure control. CONTRAST: None. COMPARISON: CT brain 03/15/2019 FINDINGS: The ventricular system is appropriate in size and configuration without midline shift. Negative for mass, stroke or hemorrhage. Neurologic calcification is seen at the basal ganglia. Low density within the periventricular white matter is typical of chronic small vessel ischemic change. Atrophy is age-appropriate. IMPRESSION: 1. Appropriate atrophy. 2. Chronic small vessel ischemic change. Signer Name: Lokesh Mak MD Signed: 03/19/2019 7:36 PM Workstation Name: [employer] - Medical Decision Making Patient is a 78-year-old F Japanese male with dementia who struck his head for the second time in the week. CTs show no change in the patient's intracranial films nor are there any new facial fractures. [facility] to the [facility] and has been cleared. Critical care attestation.: If time is entered above; I have spent that time in minutes in the direct care of this critically ill patient, excluding procedure time. ED Disposition Clinical Impression: Closed head injury Qualifiers: Encounter type: initial encounter Qualified Code(s): S09.90XA - Unspecified injury of head, initial encounter Disposition: DC-01 TO HOME OR SELFCARE Is pt being admited?: No Does the pt Need Aspirin: No Condition: Stable Instructions: Minor Head Injury (ED) Time of Disposition: 20:09
[2019-03-19 21:26] VITALS: BP 144/78
== END 2019-03-19 21:35 | disposition home or self-care (01) ==
LOC: ED 17:11
DX: S00.83XA Contusion of other part of head, initial encounter (principal); I10 Essential (primary) hypertension; F03.90 Unspecified dementia, unspecified severity, without behavioral disturbance, psychotic disturbance, mood disturbance, and anxiety; E78.00 Pure hypercholesterolemia, unspecified; Z79.899 Other long term (current) drug therapy; W01.198A Fall on same level from slipping, tripping and stumbling with subsequent striking against other object, initial encounter; Y93.89 Activity, other specified; Y92.89 Other specified places as the place of occurrence of the external cause; Y99.8 Other external cause status
CPT/HCPCS: 70450; 70486; 96372; 99284; J0360